=== PATIENT | male | born 1960 | race Caucasian/White ===

== ENCOUNTER → 2021-06-09 10:27 | Outpatient (CLI) | payer MEDICARE, MEDICAID, SELFPAY ==
[2021-06-09 19:08] LABS: Add Manual Diff / Slide Review NO; Basophils Absolute Auto 0 /uL (0-100); Basophils Percent Auto 0.7 % (0-2); Eosinophils Absolute Auto 100 /uL (0-450); Eosinophils Percent Auto 0.9 % (2-4); Hematocrit 40.9 % (41-53); Lymphocytes Absolute Auto 800 /uL (1100-4500); Lymphocytes Percent Auto 11.1 % (25-40); Mean Corpuscular HGB Conc 34.3 % (30-36); Mean Corpuscular Hemoglobin 33.5 PG (26-34); Mean Corpuscular Volume 97.9 fL (80-100); Monocytes Absolute Auto 900 /uL (0-900); Monocytes Percent Auto 13.1 % (3-14); Neutrophils Absolute Auto 5000 /uL (1500-7000); Neutrophils Percent Auto 74.2 % (50-75); Platelet Count 231 X10^3/uL (150-400); Red Blood Cell Count 4.18 X10^6/uL (4.5-5.9); Red Cell Distribution Width 12.9 % (11.6-14.8); White Blood Cell Count 6.8 X10^3/uL (4.5-11.0)
[2021-06-09 19:15] LABS: Alanine Aminotransferase 24 IU/L (<50); Albumin 3.5 g/dL (3.5-5.0); Albumin Globulin Ratio 1.1 (1.0-2.8); Alkaline Phosphatase 201 U/L (38-126); Aspartate Aminotransferase 40 IU/L (17-59); BUN Creatinine Ratio 7.6 (6-22); Bilirubin Total 0.6 mg/dL (0.2-1.3); Blood Urea Nitrogen 5 mg/dL (9-20); Calcium 9.2 mg/dL (8.4-10.2); Carbon Dioxide 28 mmol/L (22-32); Chloride 100 mmol/L (98-107); Cholesterol 160 mg/dL (140-199); Estimated Glomerular Filt Rate > 60.0 mL/min (>60); Globulin 3.3 g/dL (1.7-4.1); Glucose 154 mg/dL (70-100); HDL Cholesterol 54 mg/dL (40-60); HEMOLYSIS < 15 (0-50); LDL Cholesterol Calculated 86 mg/dL (<100); Potassium 4.2 mmol/L (3.4-5.1); Sodium 135 mmol/L (137-145); Total Protein 6.8 g/dL (6.3-8.2); Triglycerides 102 mg/dL (35-150); Uric Acid 9.2 mg/dL (3.5-8.5)
[2021-06-09 19:31] LABS: Vitamin D 25 Hydroxy (D3) 42.9 ng/mL (30.0-100.0)
[2021-06-09 19:46] LABS: Prostate Specific Antigen Scrn 0.399 ng/mL (0.1-4.0)
[2021-06-09 19:57] LABS: Erythrocyte Sedimentation Rate 37 MM/HR (0-15)
[2021-06-09 20:04] LABS: Vitamin B12 522 pg/mL (239-931)
== END ==
PROVIDERS: PCP Physician Assistant Medical; Visit Provider Physician Assistant
DX: M10.9 Gout, unspecified (principal); Z13.6 Encounter for screening for cardiovascular disorders; Z12.5 Encounter for screening for malignant neoplasm of prostate; E55.9 Vitamin D deficiency, unspecified; F11.90 Opioid use, unspecified, uncomplicated; G89.4 Chronic pain syndrome; L40.52 Psoriatic arthritis mutilans; R53.83 Other fatigue; M05.44 Rheumatoid myopathy with rheumatoid arthritis of hand; M1A.9XX0 Chronic gout, unspecified, without tophus (tophi)
CPT/HCPCS: 80053; 80061; 82306; 82607; 84550; 85025; 85651; G0103

== ENCOUNTER → 2021-06-10 12:39 | Outpatient (CLI) | payer MEDICARE, MEDICAID, SELFPAY ==
[2021-06-10 18:46] LABS: UR Morphine/Opiate cutoff 300 Positive (Negative); Ur Creatinine Normal (Normal); Ur Specific Gravity Normal (Normal); Urine pH Normal (Normal)
[2021-06-10 18:47] LABS: Urine Amphetamines Negative (Negative); Urine Barbiturates Negative (Negative); Urine Benzodiazepines Negative (Negative); Urine Cocaine Negative (Negative); Urine MDMA Negative (Negative); Urine Methadone Negative (Negative); Urine Methamphetamines Negative (Negative); Urine Oxycodone Negative (Negative); Urine Phencyclidine Negative (Negative); Urine Tetrahydrocannabinol Negative (Negative); Urine Tricyclic Antidepressant Negative (Negative)
== END ==
PROVIDERS: PCP Physician Assistant Medical; Referring Provider Physician Assistant; Visit Provider Physician Assistant
DX: G89.4 Chronic pain syndrome (principal); F11.90 Opioid use, unspecified, uncomplicated; L40.52 Psoriatic arthritis mutilans; R53.83 Other fatigue; M05.44 Rheumatoid myopathy with rheumatoid arthritis of hand; M1A.9XX0 Chronic gout, unspecified, without tophus (tophi)
CPT/HCPCS: 80305

== ENCOUNTER → 2022-01-26 08:32 | Outpatient (CLI) | payer MEDICARE, MEDICAID, SELFPAY ==
[2022-01-26 18:48] LABS: Add Manual Diff / Slide Review NO; Basophils Absolute Auto 100 /uL (0-100); Basophils Percent Auto 1.2 % (0-2); Eosinophils Absolute Auto 100 /uL (0-450); Eosinophils Percent Auto 1.9 % (2-4); Hematocrit 37.1 % (41-53); Lymphocytes Absolute Auto 1000 /uL (1100-4500); Lymphocytes Percent Auto 12.6 % (25-40); Mean Corpuscular HGB Conc 34.9 % (30-36); Mean Corpuscular Hemoglobin 32.5 PG (26-34); Mean Corpuscular Volume 92.9 fL (80-100); Monocytes Absolute Auto 1100 /uL (0-900); Monocytes Percent Auto 13.7 % (3-14); Neutrophils Absolute Auto 5500 /uL (1500-7000); Neutrophils Percent Auto 70.6 % (50-75); Platelet Count 282 X10^3/uL (150-400); Red Cell Distribution Width 12.3 % (11.6-14.8); White Blood Cell Count 7.8 X10^3/uL (4.5-11.0)
[2022-01-26 18:51] LABS: Alanine Aminotransferase 20 IU/L (<50); Albumin 3.6 g/dL (3.5-5.0); Alkaline Phosphatase 174 U/L (38-126); Aspartate Aminotransferase 30 IU/L (17-59); BUN Creatinine Ratio 6.1 (6-22); Bilirubin Total 0.7 mg/dL (0.2-1.3); Blood Urea Nitrogen 4 mg/dL (9-20); Carbon Dioxide 26 mmol/L (22-32); Chloride 102 mmol/L (98-107); Estimated Glomerular Filt Rate > 60 mL/min (>60); Globulin 3.5 g/dL (1.7-4.1); Glucose 120 mg/dL (80-110); HEMOLYSIS < 15 (0-50); Potassium 4.4 mmol/L (3.4-5.1); Sodium 138 mmol/L (137-145); Total Protein 7.1 g/dL (6.3-8.2); Uric Acid 8.3 mg/dL (3.5-8.5)
== END ==
PROVIDERS: PCP Physician Assistant; Visit Provider Physician Assistant
DX: M1A.09X1 Idiopathic chronic gout, multiple sites, with tophus (tophi) (principal); L40.50 Arthropathic psoriasis, unspecified
CPT/HCPCS: 80053; 84550; 85025

== ENCOUNTER → 2022-03-24 10:44 | Outpatient (CLI) | payer MEDICARE, MEDICAID, SELFPAY ==
[2022-03-24 22:41] LABS: Uric Acid 8.7 mg/dL (3.5-8.5)
== END ==
PROVIDERS: PCP Physician Assistant; Visit Provider Physician Assistant
DX: M1A.9XX1 Chronic gout, unspecified, with tophus (tophi) (principal)
CPT/HCPCS: 84550

== ENCOUNTER → 2022-04-26 13:22 | Outpatient (CLI) | payer MEDICARE, SELFPAY ==
[2022-04-26 20:39] LABS: Uric Acid 8.5 mg/dL (3.5-8.5)
== END ==
PROVIDERS: PCP Physician Assistant; Visit Provider Physician Assistant
DX: M1A.9XX1 Chronic gout, unspecified, with tophus (tophi) (principal)
CPT/HCPCS: 84550

== ENCOUNTER → 2022-06-19 13:26 | Outpatient (CLI) | payer MEDICARE, SELFPAY ==
[2022-06-19 19:46] LABS: Add Manual Diff / Slide Review NO; Basophils Absolute Auto 100 /uL (0-100); Eosinophils Absolute Auto 100 /uL (0-450); Eosinophils Percent Auto 1.3 % (2-4); Hematocrit 40.4 % (41-53); Lymphocytes Absolute Auto 1000 /uL (1100-4500); Mean Corpuscular HGB Conc 34.6 % (30-36); Mean Corpuscular Hemoglobin 33.7 PG (26-34); Mean Corpuscular Volume 97.2 fL (80-100); Monocytes Absolute Auto 800 /uL (0-900); Monocytes Percent Auto 13.9 % (3-14); Neutrophils Absolute Auto 3500 /uL (1500-7000); Neutrophils Percent Auto 64.8 % (50-75); Platelet Count 191 X10^3/uL (150-400); Red Blood Cell Count 4.15 X10^6/uL (4.5-5.9); Red Cell Distribution Width 13.1 % (11.6-14.8); White Blood Cell Count 5.4 X10^3/uL (4.5-11.0)
[2022-06-19 19:51] LABS: Alanine Aminotransferase 40 IU/L (<50); Albumin 3.7 g/dL (3.5-5.0); Albumin Globulin Ratio 1.1 (1.0-2.8); Alkaline Phosphatase 206 U/L (38-126); Aspartate Aminotransferase 62 IU/L (17-59); BUN Creatinine Ratio 7.4 (6-22); Bilirubin Total 0.6 mg/dL (0.2-1.3); Blood Urea Nitrogen 5 mg/dL (9-20); Calcium 8.9 mg/dL (8.4-10.2); Carbon Dioxide 25 mmol/L (22-32); Chloride 99 mmol/L (98-107); Estimated Glomerular Filt Rate > 60 mL/min (>60); Gamma Glutamyl Transpeptidase 561 U/L (15-73); Globulin 3.4 g/dL (1.7-4.1); Glucose 110 mg/dL (80-110); HEMOLYSIS < 15 (0-50); Potassium 4.1 mmol/L (3.4-5.1); Sodium 137 mmol/L (137-145); Total Protein 7.1 g/dL (6.3-8.2); Uric Acid 9.5 mg/dL (3.5-8.5)
[2022-06-19 19:55] LABS: Hemoglobin A1C% w Est Avg Glu 5.4 % (4.0-6.0)
[2022-06-19 21:04] LABS: Erythrocyte Sedimentation Rate 19 MM/HR (0-15)
[2022-06-22 17:08] LABS: ANA Screen, IFA Positive (.)
== END ==
PROVIDERS: PCP Physician Assistant; Visit Provider Family Medicine
DX: Z79.891 Long term (current) use of opiate analgesic (principal); M10.9 Gout, unspecified; G89.4 Chronic pain syndrome; L40.50 Arthropathic psoriasis, unspecified; M05.44 Rheumatoid myopathy with rheumatoid arthritis of hand; M25.562 Pain in left knee; D16.20 Benign neoplasm of long bones of unspecified lower limb; D64.9 Anemia, unspecified; R73.09 Other abnormal glucose
CPT/HCPCS: 80053; 82977; 83036; 84550; 85025; 85651; 86038

== ENCOUNTER → 2022-06-28 15:54 | Outpatient (CLI) | payer MEDICARE, MEDICAID, SELFPAY ==
--- NOTE | 2022-06-28 15:55 | DI.MRI.S_ITS ---
PROCEDURE: MR KNEE LT WO CON INDICATIONS: Left Knee Pain TECHNIQUE: Noncontrast sagittal PD fast spin echo and T2 fast spin echo with fat saturation, sagittal 3-D FLASH with fat saturation; coronal T1 spin echo and PD fast spin echo with fat saturation, and axial PD fast spin echo with fat saturation through the knee. COMPARISON: [facility] ([facility]), CR, XR KNEE LT 3V, 03/24/2022, 10:52. FINDINGS: Image quality: Excellent. Menisci: There is oblique tear of the posterior horn of the medial meniscus involving the inferior articular surface. The lateral meniscus demonstrates normal morphology and internal signal. The meniscal root ligaments appear intact. Cruciate ligaments: The anterior and posterior cruciate ligaments appear intact. Medial structures: There is grade 1 sprain of the medial collateral ligament. The semimembranosus tendon insertions and meniscocapsular junction appear intact. Visualized portions of the pes anserinus tendons appear normal. Small bursal fluid in the medial collateral ligament bursa consistent with bursitis. Lateral structures: The lateral collateral ligament and the biceps femoris tendon appear intact. The popliteus tendon appears normal. Iliotibial band appears normal. Anterior structures: The quadriceps and patellar tendons appear intact. Mild quadriceps and patellar tendinitis. Patellar alignment is normal. No femoral trochlear dysplasia or ventral trochlear prominence. No edema in the infrapatellar fat pad. Bones and cartilage: There is serpiginous intramedullary mass lesions with abnormal signal involving distal femur and proximal tibia. No fractures. There is a small osteochondral lesion in the peripheral aspect of the medial femoral condyle. Mild generalized cartilage thinning and fibrillation, most pronounced in the medial femorotibial compartment. Joint space: There is moderate knee joint effusion. No Birmingham's cyst. There is mild thickening of synovial plicae. IMPRESSION: 1. Oblique tear of the posterior horn of the medial meniscus. 2. A small osteochondral lesion involving the peripheral aspect of the medial femoral condyle. No unstable fragment is present. 3. Serpiginous intramedullary lesions with abnormal signal involving the distal femur and proximal tibia. The distal femoral lesion is incompletely visualized. The morphology of the lesions are most compatible with bone infarcts. If clinically indicated, contrast-enhanced MRI is recommended for further evaluation. 4. Medial collateral ligament bursal fluid is present, consistent with bursitis. 5. Mild quadriceps tendinitis and patellar tendinitis. 6. Moderate knee joint effusion. Dictated by: Honorio Felix M.D. on 06/28/2022 at 17:14 Approved by: Honoroi Felix M.D. on 06/29/2022 at 12:26
== END ==
PROVIDERS: PCP Physician Assistant; Referring Provider Family Medicine; Visit Provider Family Medicine
DX: S83.242A Other tear of medial meniscus, current injury, left knee, initial encounter (principal); D16.9 Benign neoplasm of bone and articular cartilage, unspecified; M76.52 Patellar tendinitis, left knee; M25.462 Effusion, left knee; M25.562 Pain in left knee; G89.29 Other chronic pain
CPT/HCPCS: 73721

== ENCOUNTER → 2022-11-29 11:59 | Outpatient (CLI) | payer MEDICARE, SELFPAY ==
[2022-11-29 19:44] LABS: Alanine Aminotransferase 39 IU/L (<50); Albumin 3.8 g/dL (3.5-5.0); Alkaline Phosphatase 250 U/L (38-126); Aspartate Aminotransferase 59 IU/L (17-59); BUN Creatinine Ratio 6.3 (6-22); Bilirubin Total 0.9 mg/dL (0.2-1.3); Blood Urea Nitrogen 4 mg/dL (9-20); Calcium 8.8 mg/dL (8.4-10.2); Carbon Dioxide 26 mmol/L (22-32); Chloride 98 mmol/L (98-107); Estimated Glomerular Filt Rate > 60 mL/min (>60); Globulin 3.9 g/dL (1.7-4.1); Glucose 97 mg/dL (80-110); HEMOLYSIS 37 (0-50); Potassium 4.6 mmol/L (3.4-5.1); Sodium 136 mmol/L (137-145); Total Protein 7.7 g/dL (6.3-8.2); Uric Acid 9.5 mg/dL (3.5-8.5)
[2022-11-30 16:18] LABS: Hepatitis B Surface Antigen NEGATIVE s/c (NEGATIVE)
[2022-11-30 16:41] LABS: Hep C Virus Ab w/Reflex Quant NEGATIVE s/c (NEGATIVE)
== END ==
PROVIDERS: PCP Physician Assistant; Visit Provider Physician Assistant
DX: R74.8 Abnormal levels of other serum enzymes (principal); M1A.9XX1 Chronic gout, unspecified, with tophus (tophi)
CPT/HCPCS: 80053; 84550; 86803; 87340

== ENCOUNTER 2023-07-25 11:43 | Inpatient (IN) | payer MEDICARE, MEDICAID, SELFPAY ==
[2023-07-25] VITALS (13 sets, daily range): BP systolic 97–114; BP diastolic 51–74; PULSE 85–118; RESP 12–36; TEMP 36.4–36.9; O2SAT 95–100; BMI 23.7
--- NOTE | 2023-07-25 12:14 | DI.RAD.S_ITS ---
PROCEDURE: XR HIP W PEL IF DONE LT 2V INDICATIONS: fall/pain TECHNIQUE: AP pelvis with lateral view(s) of the it hip(s). COMPARISON: None. FINDINGS: Bones: Age indeterminate periprosthetic fracture through the proximal left femoral shaft. Left total hip arthroplasty present, with intact cerclage wires. Soft tissues: The visualized bowel gas pattern is normal. No suspicious soft tissue calcifications. IMPRESSION: Age indeterminate periprosthetic fracture through the proximal left femoral shaft, seen best on lateral view. Dictated by: Dread Álvarez M.D. on 07/25/2023 at 12:52 Approved by: Dread Álvarez M.D. on 07/25/2023 at 12:53
--- NOTE | 2023-07-25 12:14 | DI.RAD.S_ITS ---
PROCEDURE: XR SHOULDER LT MIN 2V INDICATIONS: fall/pain TECHNIQUE: 3 views of the shoulder were acquired. COMPARISON: None. FINDINGS: Bones: No fractures or dislocations. No suspicious bony lesions. Visualized ribs appear intact. Glenohumeral and acromioclavicular joint space narrowing with associated osteophytosis. Soft tissues: No suspicious soft tissue calcifications. IMPRESSION: No acute bony abnormality. Dictated by: Dread Álvarez M.D. on 07/25/2023 at 12:53 Approved by: Dread Álvarez M.D. on 07/25/2023 at 12:54
--- NOTE | 2023-07-25 13:57 | ED_ITS ---
HPI - Extremity Injury (Lower) General Chief Complaint: Extremity Injury, Lower Stated Complaint: GLF left hip and shoulder Time Seen by Provider: 07/25/23 13:49 History of Present Illness HPI Narrative: Patient brought here by friend from home for complaints of left shoulder pain left hip pain. Patient had hip replacement 15 years ago in [place]. Has been doing well since then. Patient states 2 days ago he was walking on his path at home when he lost his balance and fell onto his left side. Only complains of left shoulder and left hip pain. No other injuries. No loss of consciousness. Patient is not on any blood thinners. Did not hit his head. No head neck or spine pain or injury. Patient unable to stand and bear weight on his left hip since then. His left shoulder feels much better. He is moving his left shoulder without any difficulty. Taking off his shirt without difficulty. Using his left hand to throw a shirt onto the bed Related Data Previous Rx's Medication Instructions Recorded naloxone 4 mg/actuation nasal spray 1 spray intranasal Q3M #2 ea 06/17/21 colchicine (gout) 0.6 mg tablet 0.6 mg PO DAILY PRN acute gout #30 03/24/22 tabs diclofenac sodium 1 % topical gel 4 g topical QID #100 grams 05/05/22 (Voltaren Arthritis Pain) naproxen 500 mg tablet 500 mg PO BID PRN pain #60 tabs 11/29/22 cyclobenzaprine 10 mg tablet 10 mg PO TID #90 tabs 05/01/23 allopurinol 300 mg tablet 300 mg PO BID #60 tabs 06/04/23 oxycodone-acetaminophen 10 mg-325 See Rx Instructions .Route 07/06/23 mg tablet .COMPLEX #90 tabs Allergies Allergy/AdvReac Type Severity Reaction Status Date / Time No Known Drug Allergies Allergy Verified 06/04/23 08:39 Review of Systems Review of Systems Narrative: GENERAL: negative chills, fatigue, malaise, fever, sweats. 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 Nontender scalp skull and face EYES: Pupils equal round ENT: Mucous membranes moist. NECK: Trachea midline. No midline tenderness or step-off of the cervical thoracic or lumbar spine CARDIOVASCULAR: Regular rate and rhythm RESPIRATORY: Clear to auscultation. Breath sounds equal bilaterally. No wheezes, rales, or rhonchi. GASTROINTESTINAL: Abdomen soft, non-tender EXTREMITIES: Patient in a seated position, examination left upper extremity there is bruising anteriorly. However full active range of motion without difficulty. No deformity of the left shoulder. Strong index clerk and radial pulse. Nontender elbow and wrist and hand Examination left lower extremity nontender knee and ankle. However any attempt to move actively or passively the left hip causes him pain. Unable to bear weight or get up from seated position BACK: No flank tenderness. NEURO: AOx4. SKIN: Warm and dry PSYCH: Not anxious, is cooperative Initial Vital Signs Initial Vital Signs: Vital Signs Temperature 98.5 F 07/25/23 12:07 Pulse Rate 85 07/25/23 12:07 Respiratory Rate 20 07/25/23 12:07 Blood Pressure 98/51 L 07/25/23 12:07 Pulse Oximetry 100 07/25/23 12:07 Oxygen Delivery Method Room Air 07/25/23 12:07 Course Orders Ordered: Discontinued Medications Acetaminophen (Acetaminophen 325 Mg Tablet) 650 mg PO Q6H PRN PRN Reason: Fever/Mild Pain (1-3) Allopurinol (Allopurinol 100 Mg Tablet) 300 mg PO BID DEMETRICE Last Admin: 07/26/23 20:51 Dose: 300 mg Documented By: Admin: 07/26/23 09:08 Dose: 300 mg Documented By: Admin: 07/25/23 21:08 Dose: 300 mg Documented By: BRETT Cyclobenzaprine HCl (Cyclobenzaprine 10 Mg Tablet) 5 mg PO Q8HR PRN PRN Reason: Spasms Last Admin: 07/26/23 09:15 Dose: 5 mg Documented By: Admin: 07/26/23 00:26 Dose: 5 mg Documented By: Admin: 07/25/23 18:03 Dose: 5 mg Documented By: ALIRIO Heparin Sodium (Porcine) (Heparin 5,000 Unit/Ml Vial) 5,000 unit SUBCUT BID DEMETRICE Heparin Sodium (Porcine) (Heparin 5,000 Unit/Ml Vial) 5,000 unit SUBCUT Q8HR DEMETRICE Last Admin: 07/27/23 06:09 Dose: Not Given Documented By: Admin: 07/26/23 21:35 Dose: Not Given Documented By: BRETT Hydromorphone HCl (Hydromorphone 1 Mg Inj) 1 mg IV NOW ONE Stop: 07/25/23 15:22 Last Admin: 07/25/23 15:26 Dose: 1 mg Documented By: EMERALD Hydromorphone HCl (Hydromorphone 0.5 Mg Inj) 1 mg IV Q3H PRN PRN Reason: Pain, Severe (7-10) Last Admin: 07/25/23 16:42 Dose: 1 mg Documented By: ALIRIO Hydromorphone HCl (Hydromorphone 1 Mg Inj) 1 mg IV Q3H PRN PRN Reason: Pain, Severe (7-10) Last Admin: 07/26/23 07:44 Dose: 1 mg Documented By: Admin: 07/26/23 02:15 Dose: 1 mg Documented By: Admin: 07/25/23 21:50 Dose: 1 mg Documented By: Admin: 07/25/23 19:02 Dose: 1 mg Documented By: ALIRIO Hydromorphone HCl (Hydromorphone 1 Mg Inj) 2 mg IV Q3H PRN PRN Reason: Pain, Severe (7-10) Last Admin: 07/27/23 04:30 Dose: 2 mg Documented By: Admin: 07/27/23 01:39 Dose: 2 mg Documented By: Admin: 07/26/23 22:18 Dose: 2 mg Documented By: Admin: 07/26/23 19:24 Dose: 2 mg Documented By: Admin: 07/26/23 12:20 Dose: 2 mg Documented By: ANASTACIO Sodium Chloride (Hypertonic Saline 3%) 150 mls @ 30 mls/hr IV NOW ONE Stop: 07/25/23 22:42 Last Infusion: 07/26/23 07:21 Dose: Infused Documented By: Admin: 07/25/23 18:01 Dose: 30 mls/hr Documented By: ALIRIO Sodium Chloride (Normal Saline 0.9%) 1,000 mls @ 125 mls/hr IV CONT DEMETRICE Last Admin: 07/27/23 05:11 Dose: 125 mls/hr Documented By: Infusion: 07/27/23 04:46 Dose: Infused Documented By: Admin: 07/26/23 20:46 Dose: 125 mls/hr Documented By: Infusion: 07/26/23 20:37 Dose: Infused Documented By: Admin: 07/26/23 12:37 Dose: 125 mls/hr Documented By: Infusion: 07/26/23 12:37 Dose: Infused Documented By: Admin: 07/26/23 08:32 Dose: 125 mls/hr Documented By: ANASTACIO Sodium Chloride (Normal Saline 0.9%) 500 mls @ 1,000 mls/hr IV BOLUS ONE Stop: 07/26/23 11:49 Last Infusion: 07/26/23 12:12 Dose: Infused Documented By: Admin: 07/26/23 11:28 Dose: 1,000 mls/hr Documented By: ANASTACIO Morphine Sulfate (Morphine 4 Mg/Ml Inj) 4 mg IV NOW ONE Stop: 07/25/23 13:58 Last Admin: 07/25/23 14:22 Dose: 4 mg Documented By: ABDIRAHMAN Naloxone HCl (Naloxone 0.4 Mg/Ml Vial) 0.2 mg IV Q2MIN PRN PRN Reason: Opiate Reversal Ondansetron HCl (Ondansetron 4 Mg/2 Ml Inj) 4 mg IV NOW ONE Stop: 07/25/23 13:58 Last Admin: 07/25/23 14:21 Dose: 4 mg Documented By: ABDIRAHMAN Ondansetron HCl (Ondansetron 4 Mg/2 Ml Inj) 4 mg IV Q8HR PRN PRN Reason: Nausea And Vomiting Oxycodone HCl (Oxycodone Ir 5 Mg Tablet) 10 mg PO Q3H PRN PRN Reason: Pain, Moderate (4-6) Oxycodone HCl (Oxycodone Ir 5 Mg Tablet) 5 mg PO Q3HR PRN PRN Reason: Pain, Moderate (4-6) Oxycodone HCl (Oxycodone Ir 10 Mg Tablet) 10 mg PO Q3HR PRN PRN Reason: Pain, Severe (7-10) Last Admin: 07/26/23 20:51 Dose: 10 mg Documented By: Admin: 07/26/23 16:11 Dose: 10 mg Documented By: Admin: 07/26/23 03:29 Dose: 10 mg Documented By: Admin: 07/26/23 00:26 Dose: 10 mg Documented By: Admin: 07/25/23 21:08 Dose: 10 mg Documented By: Admin: 07/25/23 18:03 Dose: 10 mg Documented By: ALIRIO Sodium Chloride (Sodium Chloride 1,000 Mg Tablet) 1,000 mg PO BID DEMETRICE Last Admin: 07/26/23 20:51 Dose: 1,000 mg Documented By: Admin: 07/26/23 09:44 Dose: 1,000 mg Documented By: ANASTACIO Vital Signs Vital signs: Vital Signs - 8 hr 07/25/23 12:07 07/25/23 15:10 Temperature 98.5 F Pulse Rate 85 Respiratory Rate 20 Blood Pressure 98/51 L 102/61 Pulse Oximetry 100 Oxygen Delivery Method Room Air MDM - Extremity Injury (Lower) Lab Data 07/26/23 04:30 07/27/23 04:30 Labs: Lab Results 07/25/23 Range/Units 14:23 WBC TNP RBC TNP Hgb TNP Hct TNP MCV TNP MCH TNP MCHC TNP RDW TNP Plt Count TNP Neut % (Auto) Cancelled Lymph % (Auto) Cancelled [place] % (Auto) Cancelled Eos % (Auto) Cancelled Baso % (Auto) Cancelled Neut # (Auto) Cancelled Lymph # (Auto) Cancelled [place] # (Auto) Cancelled Eos # (Auto) Cancelled Baso # (Auto) Cancelled Total Counted Not Reportable RBC Morphology Not Reportable Sodium 117 L* (137-145) mmol/L Potassium 4.2 (3.4-5.1) mmol/L Chloride 76 L* (98-107) mmol/L Carbon Dioxide 27 (22-32) mmol/L BUN 6 L (9-20) mg/dL Creatinine 0.70 (0.66-1.25) mg/dL Estimated GFR > 60 (>60) mL/min BUN/Creatinine Ratio 8.6 (6-22) Glucose 110 (80-110) mg/dL Calcium 8.9 (8.4-10.2) mg/dL Total Bilirubin 1.7 H (0.2-1.3) mg/dL AST 91 H (17-59) IU/L ALT 36 (<50) IU/L Alkaline Phosphatase 266 H (38-126) U/L Total Protein 7.1 (6.3-8.2) g/dL Albumin 3.6 (3.5-5.0) g/dL Globulin 3.5 (1.7-4.1) g/dL Albumin/Globulin Ratio 1.0 (1.0-2.8) Imaging Data Extremity x-ray #1: Radiologist's Impression: [place] [address] XRay Report Signed Patient: Jil Hutchinson MR#: [id number] : 1960 Acct:[id number] Age/Sex: 62 / M Date of Service: 07/25/23 Loc: ED Accession Number: [id number] Procedure: XR hip w pel if done LT 2V Ordering Provider: Tommy Townsend MD PROCEDURE: XR HIP W PEL IF DONE LT 2V INDICATIONS: fall/pain TECHNIQUE: AP pelvis with lateral view(s) of the it hip(s). COMPARISON: None. FINDINGS: Bones: Age indeterminate periprosthetic fracture through the proximal left femoral shaft. Left total hip arthroplasty present, with intact cerclage wires. Soft tissues: The visualized bowel gas pattern is normal. No suspicious soft tissue calcifications. IMPRESSION: Age indeterminate periprosthetic fracture through the proximal left femoral shaft, seen best on lateral view. Dictated by: Dread Álvarez M.D. on 07/25/2023 at 12:52 Approved by: Dread Álvarez M.D. on 07/25/2023 at 12:53 Extremity x-ray #2: Radiologist's Impression: [address] [address] XRay Report Signed Patient: Jil Hutchinson MR#: [id number] : 1960 Acct:[id number] Age/Sex: 62 / M Date of Service: 07/25/23 Loc: ED Accession Number: [id number] Procedure: XR shoulder LT min 2V Ordering Provider: Tommy Townsend MD PROCEDURE: XR SHOULDER LT MIN 2V INDICATIONS: fall/pain TECHNIQUE: 3 views of the shoulder were acquired. COMPARISON: None. FINDINGS: Bones: No fractures or dislocations. No suspicious bony lesions. Visualized ribs appear intact. Glenohumeral and acromioclavicular joint space narrowing with associated osteophytosis. Soft tissues: No suspicious soft tissue calcifications. IMPRESSION: No acute bony abnormality. Dictated by: Dread Álvarez M.D. on 07/25/2023 at 12:53 Approved by: Dread Álvarez M.D. on 07/25/2023 at 12:54 [facility] Narrative Medical decision making narrative: Patient brought here by friend from home for complaints of left shoulder pain left hip pain. Patient had hip replacement 15 years ago in [place]. Has been doing well since then. Patient states 2 days ago he was walking on his path at home when he lost his balance and fell onto his left side. Only complains of left shoulder and left hip pain. No other injuries. No loss of consciousness. Patient is not on any blood thinners. Did not hit his head. No head neck or spine pain or injury. Patient unable to stand and bear weight on his left hip since then. His left shoulder feels much better. He is moving his left shoulder without any difficulty. Taking off his shirt without difficulty. Using his left hand to throw a shirt onto the bed After history and exam x-ray left shoulder x-ray left hip CBC CMP IV access morphine Zofran likely transfer [facility] orthopedics specialties MDM CC: Left shoulder left hip pain Complicating co-morbidities: History of left hip surgery Data collected from: Patient and friend Medical records reviewed: No recent visit for this complaint Differential considered: Includes but not limited to shoulder/hip contusion strain sprain fracture dislocation Exam documented above, pertinent findings include: Tender and limited range of motion left hip Lab Test results independently reviewed as above. Pertinent findings: Imaging studies independently reviewed: X-ray left shoulder no acute finding X-ray left hip age indeterminate periprosthetic fracture through the proximal left femoral shaft Consultations: 2:30 p.m.. Spoke with Orthopedics, dr aldana, he will be able to do surgery on a patient here. Admit to hospitalist. Would like records from [facility]. Hospitalist to admit 3:20 p.m. spoke with hospitalist, dr rosas, will admit Treatments: Morphine Zofran dilaudid Re-evaluations: Reviewed imaging results with patient. Awaiting to hear back from orthopedic on-call for our service as well as [facility] Discussion: Appropriate for admission. Patient will have surgery here, I spoke with orthopedic provider. Pain is controlled. Patient understand needs admission. Diagnosis: Acute left hip fracture Discharge Plan Departure Patient Disposition: Admitted As Inpatient Clinical Impression: Closed hip fracture Qualifiers: Encounter type: initial encounter Laterality: left Qualified Code(s): S72.002A - Fracture of unspecified part of neck of left femur, initial encounter for closed fracture Admit Date/Time: 07/25/23 15:20 Admit Provider: Zeeshan Rosas
[2023-07-25] MEDS: ONDANSETRON 4 MG/2 ML INJ IV (14:21)
[2023-07-25] MEDS: MORPHINE 4 MG/ML INJ IV (14:22)
--- NOTE | 2023-07-25 14:53 | DI.CT.S_ITS ---
PROCEDURE: CT LE LT W CON INDICATIONS: Hip fracture TECHNIQUE: Noncontrast 3 mm axial sections acquired through the bony pelvis. Additional 3 mm axial sections acquired through the symptomatic hip joint, with coronal and sagittal reformats. COMPARISON: [facility], CR, XR HIP W PEL IF DONE LT 2V, 07/25/2023, 12:23. FINDINGS: Image quality: Excellent. Bones: Patient is status post left total hip arthroplasty. There is an acute appearing comminuted periprosthetic fracture involving proximal femoral shaft with minimal posterior and medial displacement of the fractured fragments. Slight lateral displacement of the greater trochanteric fragment is also noted. No other fracture or dislocation is seen. No suspicious bony lesions. No definite hardware loosening or failure. Soft tissues: There is soft tissue swelling surrounding proximal left femoral shaft fracture site. No pelvic free fluid or free air. No discrete soft tissue mass or drainable fluid collection. IMPRESSION: 1. Prior left total hip arthroplasty with significant beam hardening artifacts. No gross hardware loosening or failure. 2. Acute appearing slightly displaced and comminuted periprosthetic fracture involving proximal left femur as above. No other fracture or dislocation. No suspicious bony lesions. 3. Soft tissue swelling and edema surrounding left proximal femur fracture site. No abnormal soft tissue calcifications. No pelvic free fluid or free air. Dictated by: Sajan Gonzales M.D. on 07/25/2023 at 15:48 Approved by: Sajan Gonzales M.D. on 07/25/2023 at 15:59
[2023-07-25 15:05] LABS: Alanine Aminotransferase 36 IU/L (<50); Albumin 3.6 g/dL (3.5-5.0); Alkaline Phosphatase 266 U/L (38-126); Aspartate Aminotransferase 91 IU/L (17-59); BUN Creatinine Ratio 8.6 (6-22); Bilirubin Total 1.7 mg/dL (0.2-1.3); Blood Urea Nitrogen 6 mg/dL (9-20); Calcium 8.9 mg/dL (8.4-10.2); Carbon Dioxide 27 mmol/L (22-32); Estimated Glomerular Filt Rate > 60 mL/min (>60); Globulin 3.5 g/dL (1.7-4.1); Glucose 110 mg/dL (80-110); HEMOLYSIS 28 (0-50); Potassium 4.2 mmol/L (3.4-5.1); Total Protein 7.1 g/dL (6.3-8.2)
[2023-07-25 15:07] LABS: Chloride 76 mmol/L (98-107); Sodium 117 mmol/L (137-145)
--- NOTE | 2023-07-25 15:24 | P.PN_ITS ---
Subjective Subjective Interval history: Called regarding patient with fracture around prior FATOUMATA. Reportedly placed 15 years ago in [place]. Xrays show B1 versus B2 fracture. Stem does not appear grossly loose. Cerclage cables in place from prior surgery - exact history unknown at this time. May have a history of a prior fracture. CT pending for evaluation. Will require surgery - either consisting of fracture fixation with stem retention if stem is stable or revision to a long modular tapered fluted construct with surrounding fracture fixation if stem is loose. Operative records regarding the prior surgery would be extremely helpful as surgery could potentially involve liner exchange to upsize from a 28 mm head. Exact timing of surgery remains to be determined but anticipate that planning process will take enough time that this will take at least a few days to coordinate Exam Vital Signs (past 8 hours): - 07/25/23 12:07 07/25/23 15:10 Temperature 98.5 F Pulse Rate 85 Respiratory Rate 20 Blood Pressure 98/51 L 102/61 Pulse Oximetry 100 Oxygen Delivery Method Room Air Oxygen Delivery Method Room Air Objective Labs 07/25/23 14:23 07/25/23 14:23 Labs: Laboratory Results - last 24 hr 07/25/23 14:23 WBC TNP RBC TNP Hgb TNP Hct TNP MCV TNP MCH TNP MCHC TNP RDW TNP Plt Count TNP Neut % (Auto) Cancelled Lymph % (Auto) Cancelled [place] % (Auto) Cancelled Eos % (Auto) Cancelled Baso % (Auto) Cancelled Neut # (Auto) Cancelled Lymph # (Auto) Cancelled [place] # (Auto) Cancelled Eos # (Auto) Cancelled Baso # (Auto) Cancelled Sodium 117 L* Potassium 4.2 Chloride 76 L* Carbon Dioxide 27 BUN 6 L Creatinine 0.70 Estimated GFR > 60 BUN/Creatinine Ratio 8.6 Glucose 110 Calcium 8.9 Total Bilirubin 1.7 H AST 91 H ALT 36 Alkaline Phosphatase 266 H Total Protein 7.1 Albumin 3.6 Globulin 3.5 Albumin/Globulin Ratio 1.0 PFSH Medical History Foot pain Psoriatic arthritis Chronic gout, unspecified, 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
[2023-07-25] MEDS: HYDROMORPHONE 1 MG INJ IV ×3 (15:26→21:50)
[2023-07-25 15:53] LABS: Hematocrit 30.2 % (41-53); Hemoglobin 10.9 g/dL (13.5-17.5); Mean Corpuscular HGB Conc 36.1 % (30-36); Mean Corpuscular Hemoglobin 35.4 PG (26-34); Mean Corpuscular Volume 98.1 fL (80-100); Platelet Count 133 X10^3/uL (150-400); Red Blood Cell Count 3.07 X10^6/uL (4.5-5.9); Red Cell Distribution Width 11.8 % (11.6-14.8); White Blood Cell Count 8.4 X10^3/uL (4.5-11.0)
[2023-07-25 16:11] LABS: Neutrophils Absolute Manual 6468 /uL (3000-5900); RBC Morphology Normal Morphology; Total Cells Counted 100
[2023-07-25] MEDS: HYDROMORPHONE 0.5 MG INJ 1 MG IV (16:42)
[2023-07-25 17:01] LABS: Hematocrit 28.8 % (41-53); Hemoglobin 10.5 g/dL (13.5-17.5); Mean Corpuscular HGB Conc 36.4 % (30-36); Mean Corpuscular Hemoglobin 35.6 PG (26-34); Mean Corpuscular Volume 97.8 fL (80-100); Platelet Count 114 X10^3/uL (150-400); Red Blood Cell Count 2.94 X10^6/uL (4.5-5.9); Red Cell Distribution Width 11.7 % (11.6-14.8); White Blood Cell Count 6.5 X10^3/uL (4.5-11.0)
[2023-07-25 17:24] LABS: Blood Urea Nitrogen 7 mg/dL (9-20); Calcium 8.5 mg/dL (8.4-10.2); Carbon Dioxide 29 mmol/L (22-32); Chloride 77 mmol/L (98-107); Estimated Glomerular Filt Rate > 60 mL/min (>60); Glucose 106 mg/dL (80-110); Potassium 4.4 mmol/L (3.4-5.1)
[2023-07-25 17:25] LABS: HEMOLYSIS 63 (0-50)
[2023-07-25 17:26] LABS: Sodium 115 mmol/L (137-145)
[2023-07-25] MEDS: SODIUM CHLORIDE 3 % 150 ML 30 ML IV (18:01)
[2023-07-25] MEDS: OXYCODONE IR 10 MG TABLET PO ×2 (18:03→21:08)
[2023-07-25] MEDS: CYCLOBENZAPRINE 10 MG TABLET 5 MG PO (18:03)
--- NOTE | 2023-07-25 19:28 | PC.NURSE ---
When pt arrived on floor, pain not controlled, hospitalist ordered 1mg IV dilaudid and oxy 10mg. After administering PRN pain meds, and pain still not controlled several hours later, relayed pain control issues to surgeon and hospitalist. Hospitalist ordered flexeril and lidocaine patch. Just before shift change pain still not controlled and spoke with hospitalist again. When Sodium lab level came back, Na 115. Relayed critical lab to provider. Provider ordered 3% saline infusion. RN told provider that patient only has peripheral access and provider okayed 3% saline in peripheral IV until PICC placed. PICC order placed in system. RN frequently assessed IV and educated pt on signs and symptoms of IV infiltration and neurologic changes associated with hyponatremia. RN told patient to inform nurse of any IV issues. Currently VSS and IV intact with blood return, no infiltration, no leaking, no induration, no edema or pain at site. No neurologic changes.
--- NOTE | 2023-07-25 20:04 | PC.NURSE ---
Addendum entered by Rossana Araya R.N. 07/26/23 05:23: 0515- Dr. Riggs notified via text of low sodium. Will monitor. Addendum entered by Rossana Araya R.N. 07/26/23 04:35: 0430- Patient remains restless and impulsive. [place] 2. No sleep due to poor pain control. Patient has been able to void. Will monitor. Addendum entered by Rossana Araya R.N. 07/26/23 02:20: 0220- Patient Picc verified and meds given per order. Will monitor. Addendum entered by Rossana Araya R.N. 07/26/23 00:15: 0000- Picc RN here to place line. Patient has voided 100cc of urine but continues to struggle to initiate a stream. Will monitor. Addendum entered by Rossana Araya R.N. 07/25/23 21:39: 2140- Dr. Riggs has refused to increase pain control at this time. Will monitor. Original Note: 0- Patient has increased pain even with IV dilaudid. Patient heart rate is elevated and he calls out periodically. Message sent to Hospitalist awaiting orders. Will monitor.
--- NOTE | 2023-07-25 20:09 | P.HP_ITS ---
History of Present Illness History of Present Illness Date Patient Seen: 07/25/23 Time Patient Seen: 17:00 Chief complaint: GLF left hip and shoulder Narrative: Mr. Hutchinson is a 62M with PMH chronic tophaceous gout, psoriasis, opiate dependence who presents to the hospital with hip pain after a fall. He had hip replacement over a decade ago. He fell two days ago when he lost his balance and fell on his left hip. He was able to walk but with difficulty since then. Because of this he presented to the hospital. Of note he has documented in this chart to have psoriatic arthritis and rheumoatid arthritis, but rheumatology note documents differently that he has chronic tophaceous gout and psoriasis without arthritis, and also poor adherence and follow up. In the ED workup was done, vitals notable for afebrile, heart rate 80s, blood pressure 90s/50s, sats 100% on room air. Labs reviewed by me and notable for WBC 6.5, hgb 10.5, plts 114. Na 115, creatinine 0.70, BUN 7. Bili 1.7, ast 91, alt 36, alk phos 266. Hip xray showed age indeterminate periprosthetic fracture through proximal left femoral shaft. Shoulder xray with no acute process. Ortho consulted and recommended admit here for possible surgery. He was admitted for further treatment. 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 Surgical History Anesthesia History of surgery History of hip replacement Social History household members: none Smoking Status: Current every day smoker Meds Home Medications and Allergies Home Medications Medication Instructions Recorded Confirmed Type naloxone 4 mg/actuation nasal spray 1 spray intranasal Q3M #2 ea 06/17/21 07/25/23 Rx colchicine (gout) 0.6 mg tablet 0.6 mg PO DAILY PRN acute gout #30 03/24/22 07/25/23 Rx tabs diclofenac sodium 1 % topical gel 4 g topical QID #100 grams 05/05/22 07/25/23 Rx (Voltaren Arthritis Pain) naproxen 500 mg tablet 500 mg PO BID PRN pain #60 tabs 11/29/22 07/25/23 Rx cyclobenzaprine 10 mg tablet 10 mg PO TID #90 tabs 05/01/23 07/25/23 Rx allopurinol 300 mg tablet 300 mg PO BID #60 tabs 06/04/23 07/25/23 Rx oxycodone-acetaminophen 10 mg-325 See Rx Instructions .Route 07/06/23 07/25/23 Rx mg tablet .COMPLEX #90 tabs Allergies Allergy/AdvReac Type Severity Reaction Status Date / Time No Known Drug Allergies Allergy Verified 06/04/23 08:39 Review of Systems Review of Systems Narrative: 14 systems reviewed and negative aside from what is noted in HPI Exam Vital Signs (past 8 hours): - 07/25/23 15:10 07/25/23 16:21 07/25/23 16:46 Temperature 98.1 F Pulse Rate 104 H Respiratory Rate 18 Blood Pressure 102/61 103/62 Pulse Oximetry 99 Oxygen Delivery Method Room Air Oxygen Flow Rate 0 07/25/23 18:11 07/25/23 18:11 07/25/23 18:30 Temperature Pulse Rate 104 H 102 H Respiratory Rate 12 25 H Blood Pressure 98/63 Pulse Oximetry Oxygen Delivery Method Oxygen Flow Rate 07/25/23 18:43 07/25/23 18:55 07/25/23 18:55 Temperature Pulse Rate 98 H 96 H Respiratory Rate 16 26 H Blood Pressure 100/70 100/70 Pulse Oximetry 98 98 Oxygen Delivery Method Oxygen Flow Rate 07/25/23 19:00 07/25/23 19:00 Temperature Pulse Rate 95 H Respiratory Rate 16 Blood Pressure 97/59 L Pulse Oximetry 99 Oxygen Delivery Method Oxygen Flow Rate 0 Oxygen Delivery Method Room Air Oxygen Flow Rate 0 Narrative Exam Narrative: GEN: in distress from pain HEENT: moist mucous membranes CV: regular rate and rhythm, no murmurs PULM: clear bilaterally ABD: soft, nontender EXT: warm and well perfused with no edema, severe tophaceous gout in fingers bilaterally NEURO: awake, alert, no focal eficits Objective Labs 07/25/23 16:50 07/25/23 16:50 Labs: Laboratory Results - last 24 hr 07/25/23 07/25/23 07/25/23 14:23 15:46 16:50 WBC TNP 8.4 6.5 RBC TNP 3.07 L 2.94 L Hgb TNP 10.9 L 10.5 L Hct TNP 30.2 L 28.8 L MCV TNP 98.1 97.8 MCH TNP 35.4 H 35.6 H MCHC TNP 36.1 H 36.4 H RDW TNP 11.8 11.7 Plt Count TNP 133 L 114 L Neut % (Auto) Cancelled Lymph % (Auto) Cancelled [place] % (Auto) Cancelled Eos % (Auto) Cancelled Baso % (Auto) Cancelled Neut # (Auto) Cancelled Lymph # (Auto) Cancelled [place] # (Auto) Cancelled Eos # (Auto) Cancelled Baso # (Auto) Cancelled Total Counted Not Reportable 100 Seg Neutrophils % 72.0 H Band Neutrophils % 5.0 Lymphocytes % (Manual) 10.0 L Monocytes % (Manual) 12.0 H Metamyelocytes % 1.0 H Neutrophils # (Manual) 6468 H RBC Morphology Not Reportable Normal morphology Sodium 117 L* 115 L* Potassium 4.2 4.4 Chloride 76 L* 77 L Carbon Dioxide 27 29 BUN 6 L 7 L Creatinine 0.70 0.70 Estimated GFR > 60 > 60 BUN/Creatinine Ratio 8.6 10.0 Glucose 110 106 Calcium 8.9 8.5 Total Bilirubin 1.7 H AST 91 H ALT 36 Alkaline Phosphatase 266 H Total Protein 7.1 Albumin 3.6 Globulin 3.5 Albumin/Globulin Ratio 1.0 Assessment & Plan Assessment & Plan narrative: 1. Acute periprosthetic hip fracture -spoke with ortho, will begin planning for possible repair -for now patient can ambulate as tolerated and continue diet -continue pain control, may need to be significant due to opiate dependence 2. Severe hyponatremia -patient essentially asymptomatic -on my exam appears euovlemic -in setting of pain, may have siadh -ordered urine sodium, and serum/urine osms -for now start hypertonic saline, ordered picc, check na q4h, fluid restriction 3. Chronic tophaceous gout -continue allopurinol 4. Opiate dependence -will make treating pain more difficult -IV pain meds with dilaudid for now 5. Psoriasis vs other -per PCP note they were attempting to get records to see if any diagnosis of RA or psoriatic arthritis -is not currently on medications for autoimmune arthritis I have discussed plan and obtained history from patient. I have discussed plan of care with ED physician, bedside nurse, ortho surgeon. I have reviewed, labs, imaging, medical notes CODE: Full Proxy: family [facility] - Meds 'Current medications' to include all prescriptions, [id number] products, herbals, cannabis/cannabidiol products, and vitamin/mineral/dietary (nutritional) supplements. I have utilized all available resources to obtain, update, or review the patient?s current medications. [If Yes, STOP here]: Yes
[2023-07-25] MEDS: allopurinoL 100 MG TABLET 300 MG PO (21:08)
[2023-07-25 21:36] LABS: MRSA (Nasal) PCR Not Detected (Not Detect)
[2023-07-25 23:07] LABS: Sodium 117 mmol/L (137-145)
[2023-07-26] VITALS (33 sets, daily range): BP systolic 72–117; BP diastolic 36–95; PULSE 90–157; RESP 15–40; TEMP 36.1–36.8; O2SAT 74–99
[2023-07-26] MEDS: OXYCODONE IR 10 MG TABLET PO ×4 (00:26→20:51)
[2023-07-26] MEDS: CYCLOBENZAPRINE 10 MG TABLET 5 MG PO ×2 (00:26→09:15)
[2023-07-26 00:32] LABS: Sodium Urine Random < 5 mmol/L (30-90)
--- NOTE | 2023-07-26 01:05 | DI.RAD.S_ITS ---
PROCEDURE: XR CHEST 1V INDICATIONS: s/p Picc placement TECHNIQUE: One view of the chest was acquired. COMPARISON: [facility] ([facility]), CR, XR CHEST 2V, 02/12/2023, 14:02. FINDINGS: Surgical changes and devices: Tip of the right PICC projects over the lower SVC Lungs and pleura: Lungs are clear. No pleural effusions or pneumothorax. Mediastinum: Mediastinal contours appear normal. Heart size is normal. Bones and chest wall: Remote rib fractures present IMPRESSION: Tip of the right PICC projects over the lower SVC. Dictated by: Yuval Srinivasan M.D. on 07/26/2023 at 1:51 Approved by: Yuval Srinivasan M.D. on 07/26/2023 at 1:52
[2023-07-26] MEDS: HYDROMORPHONE 1 MG INJ IV ×2 (02:15→07:44)
[2023-07-26 04:38] LABS: Hemoglobin 8.7 g/dL (13.5-17.5); Lymphocytes Absolute Auto 800 /uL (1100-4500); Platelet Count 107 X10^3/uL (150-400); Red Blood Cell Count 2.44 X10^6/uL (4.5-5.9)
[2023-07-26 04:48] LABS: BUN Creatinine Ratio 7.9 (6-22); Blood Urea Nitrogen 6 mg/dL (9-20); Calcium 7.9 mg/dL (8.4-10.2); Carbon Dioxide 28 mmol/L (22-32); Chloride 79 mmol/L (98-107); Estimated Glomerular Filt Rate > 60 mL/min (>60); Glucose 99 mg/dL (80-110); HEMOLYSIS < 15 (0-50); Potassium 4.2 mmol/L (3.4-5.1)
[2023-07-26 04:49] LABS: Alanine Aminotransferase 30 IU/L (<50); Albumin 2.6 g/dL (3.5-5.0); Albumin Globulin Ratio 0.9 (1.0-2.8); Alkaline Phosphatase 198 U/L (38-126); Aspartate Aminotransferase 77 IU/L (17-59); Bilirubin Total 1.7 mg/dL (0.2-1.3); Bilirubin Unconjugated 0.9 mg/dL (0.0-1.1); Globulin 2.9 g/dL (1.7-4.1); HEMOLYSIS < 15 (0-50); Total Protein 5.5 g/dL (6.3-8.2)
[2023-07-26 04:56] LABS: Sodium 115 mmol/L (137-145)
[2023-07-26 05:19] LABS: Add Manual Diff / Slide Review NO; Basophils Absolute Auto 0 /uL (0-100); Basophils Percent Auto 0.7 % (0-2); Eosinophils Absolute Auto 0 /uL (0-450); Eosinophils Percent Auto 0.6 % (2-4); Mean Corpuscular HGB Conc 36.1 % (30-36); Mean Corpuscular Hemoglobin 35.6 PG (26-34); Mean Corpuscular Volume 98.6 fL (80-100); Monocytes Absolute Auto 1100 /uL (0-900); Monocytes Percent Auto 15.4 % (3-14); Neutrophils Absolute Auto 5000 /uL (1500-7000); Neutrophils Percent Auto 72.3 % (50-75); Red Cell Distribution Width 11.8 % (11.6-14.8)
--- NOTE | 2023-07-26 07:40 | P.HP_ITS ---
History of Present Illness History of Present Illness Date Patient Seen: 07/25/23 Chief complaint: GLF left hip and shoulder Narrative: Patient seen last night. I had initially received a consult for him prior to admission and reviewed his imaging which demonstrated a relatively nondisplaced fracture around a prior total hip arthroplasty. I had initially presumed this would be an operative injury however after discussing the injury with the patient he fell on Sunday and had walked with a cane for 2 days after the injury occurred. He was admitted to the hospital and admitted to the ICU because of severe hyponatremia. 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 Surgical History Anesthesia History of surgery History of hip replacement Social History household members: none Smoking Status: Current every day smoker Meds Home Medications and Allergies Home Medications Medication Instructions Recorded Confirmed Type naloxone 4 mg/actuation nasal spray 1 spray intranasal Q3M #2 ea 06/17/21 07/25/23 Rx colchicine (gout) 0.6 mg tablet 0.6 mg PO DAILY PRN acute gout #30 03/24/22 07/25/23 Rx tabs diclofenac sodium 1 % topical gel 4 g topical QID #100 grams 05/05/22 07/25/23 Rx (Voltaren Arthritis Pain) naproxen 500 mg tablet 500 mg PO BID PRN pain #60 tabs 11/29/22 07/25/23 Rx cyclobenzaprine 10 mg tablet 10 mg PO TID #90 tabs 05/01/23 07/25/23 Rx allopurinol 300 mg tablet 300 mg PO BID #60 tabs 06/04/23 07/25/23 Rx oxycodone-acetaminophen 10 mg-325 See Rx Instructions .Route 07/06/23 07/25/23 Rx mg tablet .COMPLEX #90 tabs Allergies Allergy/AdvReac Type Severity Reaction Status Date / Time No Known Drug Allergies Allergy Verified 06/04/23 08:39 Review of Systems Review of Systems ROS: Yes All systems reviewed with the patient and are negative except as otherwise documented Exam Vital Signs (past 8 hours): - 07/26/23 00:00 07/26/23 00:00 07/26/23 01:00 Temperature 97.5 F L Pulse Rate 118 H Respiratory Rate 19 Blood Pressure 115/65 103/61 Pulse Oximetry 97 Oxygen Flow Rate 0 07/26/23 01:00 07/26/23 02:00 07/26/23 03:00 Temperature Pulse Rate 103 H 127 H Respiratory Rate 20 40 H Blood Pressure 111/61 117/72 Pulse Oximetry 97 Oxygen Flow Rate 0 07/26/23 03:00 07/26/23 04:00 07/26/23 04:00 Temperature 97.0 F L Pulse Rate 111 H 103 H Respiratory Rate 20 19 Blood Pressure 94/52 L Pulse Oximetry 97 Oxygen Flow Rate 0 0 07/26/23 05:00 07/26/23 05:00 07/26/23 06:00 Temperature Pulse Rate 102 H 97 H Respiratory Rate 18 16 Blood Pressure 85/50 L Pulse Oximetry Oxygen Flow Rate 0 07/26/23 06:00 07/26/23 06:01 07/26/23 06:01 Temperature Pulse Rate 98 H Respiratory Rate 19 Blood Pressure 78/51 L 85/53 L Pulse Oximetry Oxygen Flow Rate 0 Oxygen Delivery Method Room Air Oxygen Flow Rate 0 Narrative Exam Narrative: Examination of the affected hip demonstrates a well-healed posterior surgical incision. He has significant ecchymosis laterally as well as in the groin. He is able to tolerate mild range of motion of the hip but complains of pain with more significant motion. He has intact dorsiflexion and plantar flexion of his hallux and ankle Const General: cooperative Orientation: alert and awake [facility] Head: normal to inspection Ears: hearing grossly normal bilaterally Eyes General: appearance normal, both eyes and all related structures Neck Neck: normal visual inspection Resp Effort & Inspection: normal respiratory effort and able to speak in complete sentences Cardio Pulses: other (peripheral pulses present) Skin Lesions: no lesions Rashes: no rashes Neuro General: patient alert, patient awake and moves all extremities Psych Appearance: grossly normal Objective Imaging CT femur: My impression: Radiographs as well as a CT scan reviewed. He has a prior total hip arthroplasty in place with cerclage cables around the lesser trochanter and calcar. There is a fracture in the subtrochanteric region. It does not appear to be chronic. There are clean fracture edges. He has a long uncemented stem with a stable distal position which effectively bridges the fracture. The hip is concentrically reduced and the metaphyseal region remains intact around the shoulder of the stem Labs 07/26/23 04:30 07/26/23 04:30 Labs: Laboratory Results - last 24 hr 07/25/23 07/25/23 07/25/23 14:23 15:46 16:01 WBC TNP 8.4 RBC TNP 3.07 L Hgb TNP 10.9 L Hct TNP 30.2 L MCV TNP 98.1 MCH TNP 35.4 H MCHC TNP 36.1 H RDW TNP 11.8 Plt Count TNP 133 L Neut % (Auto) Cancelled Lymph % (Auto) Cancelled [place] % (Auto) Cancelled Eos % (Auto) Cancelled Baso % (Auto) Cancelled Neut # (Auto) Cancelled Lymph # (Auto) Cancelled [place] # (Auto) Cancelled Eos # (Auto) Cancelled Baso # (Auto) Cancelled Total Counted Not Reportable 100 Seg Neutrophils % 72.0 H Band Neutrophils % 5.0 Lymphocytes % (Manual) 10.0 L Monocytes % (Manual) 12.0 H Metamyelocytes % 1.0 H Neutrophils # (Manual) 6468 H RBC Morphology Not Reportable Normal morphology Sodium 117 L* Potassium 4.2 Chloride 76 L* Carbon Dioxide 27 BUN 6 L Creatinine 0.70 Estimated GFR > 60 BUN/Creatinine Ratio 8.6 Glucose 110 Calcium 8.9 Total Bilirubin 1.7 H Conjugated Bilirubin Unconjugated Bilirubin AST 91 H ALT 36 Alkaline Phosphatase 266 H Total Protein 7.1 Albumin 3.6 Globulin 3.5 Albumin/Globulin Ratio 1.0 Ur Random Sodium Nasal Screen MRSA (PCR) Not detected 07/25/23 07/25/23 07/25/23 16:50 22:52 23:45 WBC 6.5 RBC 2.94 L Hgb 10.5 L Hct 28.8 L MCV 97.8 MCH 35.6 H MCHC 36.4 H RDW 11.7 Plt Count 114 L Neut % (Auto) Lymph % (Auto) [place] % (Auto) Eos % (Auto) Baso % (Auto) Neut # (Auto) Lymph # (Auto) [place] # (Auto) Eos # (Auto) Baso # (Auto) Total Counted Seg Neutrophils % Band Neutrophils % Lymphocytes % (Manual) Monocytes % (Manual) Metamyelocytes % Neutrophils # (Manual) RBC Morphology Sodium 115 L* 117 L* Potassium 4.4 Chloride 77 L Carbon Dioxide 29 BUN 7 L Creatinine 0.70 Estimated GFR > 60 BUN/Creatinine Ratio 10.0 Glucose 106 Calcium 8.5 Total Bilirubin Conjugated Bilirubin Unconjugated Bilirubin AST ALT Alkaline Phosphatase Total Protein Albumin Globulin Albumin/Globulin Ratio Ur Random Sodium < 5 L Nasal Screen MRSA (PCR) 07/26/23 04:30 WBC 7.0 RBC 2.44 L Hgb 8.7 L Hct 24.0 L MCV 98.6 MCH 35.6 H MCHC 36.1 H RDW 11.8 Plt Count 107 L Neut % (Auto) 72.3 Lymph % (Auto) 11.0 L [place] % (Auto) 15.4 H Eos % (Auto) 0.6 L Baso % (Auto) 0.7 Neut # (Auto) 5000 Lymph # (Auto) 800 L [place] # (Auto) 1100 H Eos # (Auto) 0 Baso # (Auto) 0 Total Counted Seg Neutrophils % Band Neutrophils % Lymphocytes % (Manual) Monocytes % (Manual) Metamyelocytes % Neutrophils # (Manual) RBC Morphology Sodium 115 L* Potassium 4.2 Chloride 79 L Carbon Dioxide 28 BUN 6 L Creatinine 0.76 Estimated GFR > 60 BUN/Creatinine Ratio 7.9 Glucose 99 Calcium 7.9 L Total Bilirubin 1.7 H Conjugated Bilirubin 0.0 Unconjugated Bilirubin 0.9 AST 77 H ALT 30 Alkaline Phosphatase 198 H Total Protein 5.5 L Albumin 2.6 L Globulin 2.9 Albumin/Globulin Ratio 0.9 L Ur Random Sodium Nasal Screen MRSA (PCR) Assessment & Plan Assessment and plan (1) Closed hip fracture: Qualifiers: Encounter type: initial encounter Laterality: left Qualified Code(s): S72.002A - Fracture of unspecified part of neck of left femur, initial encounter for closed fracture Status: Acute Plan Because of the patient's severe hyponatremia surgery is not an option for him at this time. He would not be safe for anesthesia. Even if he were safe for anesthesia I think a trial of nonoperative treatment would be appropriate. He should be made touchdown weight-bearing on his left lower extremity. He can ambulate with a walker. Given the fact that he has already ambulated on this since the injury and has multiple medical comorbidities which make him high risk for surgery, if we can successfully treat this nonoperatively that would carry a much lower risk profile. Operative intervention is currently not feasible because of his medical condition and this means we should take advantage of the time that we have all his medical condition is being improved to begin gently mobilizing him with a walker while maintaining touchdown weight-bearing status
[2023-07-26] MEDS: SODIUM CHLORIDE 0.9% 1,000 ML 125 ML IV ×3 (08:32→20:46)
--- NOTE | 2023-07-26 09:06 | PM.PN.1 ---
Subjective Subjective Interval history: Significant hip pain and chronic tolerance. No chest pain or dyspnea. Exam Vital Signs (past 8 hours): - 07/26/23 02:00 07/26/23 03:00 07/26/23 03:00 Temperature Pulse Rate 127 H 111 H Respiratory Rate 40 H 20 Blood Pressure 111/61 117/72 Pulse Oximetry 97 Oxygen Delivery Method Oxygen Flow Rate 0 0 07/26/23 04:00 07/26/23 04:00 07/26/23 05:00 Temperature 97.0 F L Pulse Rate 103 H Respiratory Rate 19 Blood Pressure 94/52 L 85/50 L Pulse Oximetry 97 Oxygen Delivery Method Oxygen Flow Rate 0 0 07/26/23 05:00 07/26/23 06:00 07/26/23 06:00 Temperature Pulse Rate 102 H 97 H Respiratory Rate 18 16 Blood Pressure 78/51 L Pulse Oximetry Oxygen Delivery Method Oxygen Flow Rate 07/26/23 06:01 07/26/23 06:01 07/26/23 07:00 Temperature Pulse Rate 98 H Respiratory Rate 19 Blood Pressure 85/53 L 78/49 L Pulse Oximetry Oxygen Delivery Method Oxygen Flow Rate 0 07/26/23 07:00 07/26/23 07:00 07/26/23 07:03 Temperature Pulse Rate 96 H Respiratory Rate 16 Blood Pressure 72/45 L Pulse Oximetry Oxygen Delivery Method Room Air Oxygen Flow Rate 07/26/23 07:03 07/26/23 07:28 07/26/23 07:28 Temperature Pulse Rate 94 H 115 H Respiratory Rate 19 29 H Blood Pressure 114/95 H Pulse Oximetry Oxygen Delivery Method Oxygen Flow Rate 07/26/23 07:34 07/26/23 07:34 07/26/23 08:00 Temperature Pulse Rate 106 H Respiratory Rate 30 H Blood Pressure 114/85 97/53 L Pulse Oximetry Oxygen Delivery Method Oxygen Flow Rate 07/26/23 08:00 Temperature Pulse Rate 98 H Respiratory Rate 17 Blood Pressure Pulse Oximetry Oxygen Delivery Method Oxygen Flow Rate Oxygen Delivery Method Room Air Oxygen Flow Rate 0 Narrative Exam Narrative: NAD Lungs clear with normal effort CV RRR without M/G/R Abdomen Soft, NT/ND No rash No leg edema Objective Labs 07/26/23 04:30 07/26/23 04:30 Labs: Laboratory Results - last 24 hr 07/25/23 07/25/23 07/25/23 14:23 15:46 16:01 WBC TNP 8.4 RBC TNP 3.07 L Hgb TNP 10.9 L Hct TNP 30.2 L MCV TNP 98.1 MCH TNP 35.4 H MCHC TNP 36.1 H RDW TNP 11.8 Plt Count TNP 133 L Neut % (Auto) Cancelled Lymph % (Auto) Cancelled [place] % (Auto) Cancelled Eos % (Auto) Cancelled Baso % (Auto) Cancelled Neut # (Auto) Cancelled Lymph # (Auto) Cancelled [place] # (Auto) Cancelled Eos # (Auto) Cancelled Baso # (Auto) Cancelled Total Counted Not Reportable 100 Seg Neutrophils % 72.0 H Band Neutrophils % 5.0 Lymphocytes % (Manual) 10.0 L Monocytes % (Manual) 12.0 H Metamyelocytes % 1.0 H Neutrophils # (Manual) 6468 H RBC Morphology Not Reportable Normal morphology Sodium 117 L* Potassium 4.2 Chloride 76 L* Carbon Dioxide 27 BUN 6 L Creatinine 0.70 Estimated GFR > 60 BUN/Creatinine Ratio 8.6 Glucose 110 Calcium 8.9 Total Bilirubin 1.7 H Conjugated Bilirubin Unconjugated Bilirubin AST 91 H ALT 36 Alkaline Phosphatase 266 H Total Protein 7.1 Albumin 3.6 Globulin 3.5 Albumin/Globulin Ratio 1.0 Ur Random Sodium Nasal Screen MRSA (PCR) Not detected 07/25/23 07/25/23 07/25/23 16:50 22:52 23:45 WBC 6.5 RBC 2.94 L Hgb 10.5 L Hct 28.8 L MCV 97.8 MCH 35.6 H MCHC 36.4 H RDW 11.7 Plt Count 114 L Neut % (Auto) Lymph % (Auto) [place] % (Auto) Eos % (Auto) Baso % (Auto) Neut # (Auto) Lymph # (Auto) [place] # (Auto) Eos # (Auto) Baso # (Auto) Total Counted Seg Neutrophils % Band Neutrophils % Lymphocytes % (Manual) Monocytes % (Manual) Metamyelocytes % Neutrophils # (Manual) RBC Morphology Sodium 115 L* 117 L* Potassium 4.4 Chloride 77 L Carbon Dioxide 29 BUN 7 L Creatinine 0.70 Estimated GFR > 60 BUN/Creatinine Ratio 10.0 Glucose 106 Calcium 8.5 Total Bilirubin Conjugated Bilirubin Unconjugated Bilirubin AST ALT Alkaline Phosphatase Total Protein Albumin Globulin Albumin/Globulin Ratio Ur Random Sodium < 5 L Nasal Screen MRSA (PCR) 07/26/23 04:30 WBC 7.0 RBC 2.44 L Hgb 8.7 L Hct 24.0 L MCV 98.6 MCH 35.6 H MCHC 36.1 H RDW 11.8 Plt Count 107 L Neut % (Auto) 72.3 Lymph % (Auto) 11.0 L [place] % (Auto) 15.4 H Eos % (Auto) 0.6 L Baso % (Auto) 0.7 Neut # (Auto) 5000 Lymph # (Auto) 800 L [place] # (Auto) 1100 H Eos # (Auto) 0 Baso # (Auto) 0 Total Counted Seg Neutrophils % Band Neutrophils % Lymphocytes % (Manual) Monocytes % (Manual) Metamyelocytes % Neutrophils # (Manual) RBC Morphology Sodium 115 L* Potassium 4.2 Chloride 79 L Carbon Dioxide 28 BUN 6 L Creatinine 0.76 Estimated GFR > 60 BUN/Creatinine Ratio 7.9 Glucose 99 Calcium 7.9 L Total Bilirubin 1.7 H Conjugated Bilirubin 0.0 Unconjugated Bilirubin 0.9 AST 77 H ALT 30 Alkaline Phosphatase 198 H Total Protein 5.5 L Albumin 2.6 L Globulin 2.9 Albumin/Globulin Ratio 0.9 L Ur Random Sodium Nasal Screen MRSA (PCR) [facility] Medical History Foot pain Psoriatic arthritis Chronic gout, unspecified, 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 Acute periprosthetic hip fracture, POA. -spoke with ortho, will begin planning for possible repair. Will discuss with today. -for now patient can ambulate as tolerated and continue diet -continue pain control, may need to be significant due to opiate dependence 2. Severe hyponatremia, POA (potomania). -patient essentially asymptomatic -on my exam appears euovlemic -no SIADH, low Urine Na. -Saline at 125, and NaCl tablets. 3. Chronic tophaceous gout, POA. -continue allopurinol 4. Opiate dependence, POA -will make treating pain more difficult -IV pain meds with dilaudid for now, increase dose. 5. Psoriasis , POA. -per PCP note they were attempting to get records to see if any diagnosis of RA or psoriatic arthritis -is not currently on medications for autoimmune arthritis I have discussed plan and obtained history from patient. I have discussed plan of care with ED physician, bedside nurse, ortho surgeon. I have reviewed, labs, imaging, medical notes CODE: Full Proxy: family [facility]
[2023-07-26] MEDS: allopurinoL 100 MG TABLET 300 MG PO ×2 (09:08→20:51)
[2023-07-26 09:13] LABS: Sodium 116 mmol/L (137-145)
[2023-07-26] MEDS: SODIUM CHLORIDE 1,000 MG TABLET 1000 MG PO ×2 (09:44→20:51)
[2023-07-26] MEDS: SODIUM CHLORIDE 0.9% 500 ML 1000 ML IV (11:28)
[2023-07-26] MEDS: HYDROMORPHONE 1 MG INJ 2 MG IV ×3 (12:20→22:18)
--- NOTE | 2023-07-26 12:29 | CM.DANOTE ---
Initial DCP Assessment Note Reviewed EMR for pt's medical status and anticipated d/c needs. Met with pt at bedside to introduce self and role. Pt found to be somnolent, but able to appropriately answer questions and express his needs/preferences for d/c once medically stable. Payor: Medicare, Medicaid [employer] Program Pt is a 62 year-old M admitted for L-should and hip pain after a fall. Pt dx with an acute periprosthetic hip fracture on CT imaging. Per Ortho, due to severe hyponatremia, surgery has not yet been deemed an option. [facility] is scheduled to consult today for potential surgery once pt's sodium levels are appropriate, however the focus at this time is to work on the sodium levels, get him moving more with PT/OT as possible. Pt shares that he lives alone, that he experiences financial insecurity due to living on $800/month. He states that he refuses to go to a SNF for rebab post d/c due to possible out of pocket costs. DCP will continue to monitor overall recommendations by therapies and work with pt to explore safe and manageable options for OP tx. Discharge Planning/Care Management CM Discharge Assessment Start: 07/26/23 12:11 Freq: Status: Active Protocol: Document 07/26/23 12:11 DPL (Rec: 07/26/23 12:29 DPL [id number]) Discharge Planning Assessment Assigned Senior Counsel ANN-MARIE Dewey Advance Directives? No History Provided By Medical Record Has Patient been admitted in last 30 No days? Prior Living Arrangements RV Household Members none Comment Pt states that family/friends are available to assist him as needed. Type of transporation used prior to Drives own vehicle admit Independent with ADL's Yes Is patient alert and oriented? Yes Caregiver for Another No Comment This CURATOR OF [employer]US[employer]IP[employer] discussed the potential needs when he does d /c, SNF being recommended. He was adamantly against going to a SNF, stating that he can't afford any co-pay's or out of pocket needs that might entail . Plan to discuss this further pending progress with PT/OT, and whether Ortho does move forward with a surgical repair for him. Barriers to Discharge Yes Comment Potential financial barrier, lack of cg in home. Discharge Plan Home Transportation Arrangement None Referrals Initiated Home Health Additional Comment Possible HH if SNF is refused. Cont. to follow pending therapies and Ortho recommendations. If patient plan is home with home health No : Has signed face to face form been completed? Medicare Choice List Provided No SNF/HH Preference Will discuss this should pt change his mind about SNF rehab facility as an option. Has Agency SNF been contacted No Whiteboard Updated in Patient Room with Yes name and ext. # of Senior Counsel Review Status In Process Please Provide Date Initial DC 07/26/20 Assessment Was Performed
[2023-07-26 13:14] LABS: Sodium 117 mmol/L (137-145)
[2023-07-26 16:23] LABS: BUN Creatinine Ratio 9.5 (6-22); Blood Urea Nitrogen 7 mg/dL (9-20); Calcium 7.9 mg/dL (8.4-10.2); Carbon Dioxide 27 mmol/L (22-32); Chloride 85 mmol/L (98-107); Estimated Glomerular Filt Rate > 60 mL/min (>60); Glucose 109 mg/dL (80-110); HEMOLYSIS < 15 (0-50); Potassium 3.9 mmol/L (3.4-5.1)
[2023-07-26 16:45] LABS: Sodium 119 mmol/L (137-145)
--- NOTE | 2023-07-26 21:29 | PC.NURSE ---
Addendum entered by Rossana Araya R.N. 07/27/23 06:40: 0600- Patient has gotten better rest tonight. Patient is non-compliant with weight bearing instruction. Patient advised of risk of further injury to the left hip. Patient has concerns about discharge he needs a pass to walk on first at the [place] and he needs a walker because all he has is a cane to get around with at home. Labs reviews and sodium reported to Dr. Riggs no orders received. Addendum entered by Rossana Araya R.N. 07/27/23 00:49: 0030- Patient continues to be impulsive. Patient has urgency and then difficulty starting a stream so voiding is an ongoing issue. Bed alarm is engaged for safety. Addendum entered by Rossana Araya R.N. 07/26/23 22:34: 2215- Patient found oob with his walker. Patient advised that his weight bearing on his fractured left hip is toe touch. Patient states he forgets the limitations. Patient helped back to bed and medicated for pain. Patient bed alarm on despite his objection. Will monitor. Original Note: 2130- Patient primary concern is pain. He is impulsive and is requesting the bed alarm be off. Patient advised that the bed alarm is engaged for his safety. Patient is agitated and verbally aggressive at times. Patient can be reasoned with and will comply with requests. Will monitor closely and medicate per orders.
[2023-07-26 22:22] LABS: BUN Creatinine Ratio 8.8 (6-22); Blood Urea Nitrogen 6 mg/dL (9-20); Calcium 7.4 mg/dL (8.4-10.2); Carbon Dioxide 27 mmol/L (22-32); Chloride 87 mmol/L (98-107); Estimated Glomerular Filt Rate > 60 mL/min (>60); Glucose 101 mg/dL (80-110); HEMOLYSIS 41 (0-50); Potassium 3.7 mmol/L (3.4-5.1)
[2023-07-26 22:24] LABS: Sodium 119 mmol/L (137-145)
[2023-07-27] MEDS: HYDROMORPHONE 1 MG INJ 2 MG IV ×2 (01:39→04:30)
[2023-07-27 01:42] VITALS: BP 91/52; PULSE 104; RESP 18; O2SAT 93
[2023-07-27 05:09] LABS: BUN Creatinine Ratio 9.1 (6-22); Blood Urea Nitrogen 6 mg/dL (9-20); Calcium 7.2 mg/dL (8.4-10.2); Carbon Dioxide 25 mmol/L (22-32); Chloride 89 mmol/L (98-107); Estimated Glomerular Filt Rate > 60 mL/min (>60); Glucose 89 mg/dL (80-110); HEMOLYSIS 21 (0-50); Potassium 3.6 mmol/L (3.4-5.1); Sodium 120 mmol/L (137-145)
[2023-07-27] MEDS: SODIUM CHLORIDE 0.9% 1,000 ML 125 ML IV (05:11)
--- NOTE | 2023-07-27 08:20 | PC.NURSE ---
0730 Pt agitated and upset wanting to leave immediately. States he has appointments and needs to be somewhere at 0900. Dr. Short informed that pt wants to leave AMA, form signed and Picc line removed.
[2023-07-27 14:25] LABS: Osmolality, Serum 242 mOsmol/kg (280-301)
[2023-07-27 14:25] LABS: Osmolality Urine 152 mOsmol/kg (.)
--- NOTE | 2023-07-27 15:03 | PM.DS.1 ---
History of Present Illness History of Present Illness Date Patient Seen: 07/27/23 Time Patient Seen: 07:50 Date of Onset of Symptoms: 07/25/23 Chief complaint: GLF left hip and shoulder Narrative: Mr. Hutchinson is a 62M with a history of chronic tophaceous gout, psoriasis, opiate dependence who presents to the hospital with hip pain after a fall. He had hip replacement over a decade ago. He fell two days ago when he lost his balance and fell on his left hip. He was able to walk but with difficulty since then. Because of this he presented to the hospital. Of note he has documented in this chart to have psoriatic arthritis and rheumoatid arthritis, but rheumatology note documents differently that he has chronic tophaceous gout and psoriasis without arthritis, and also poor adherence and follow up. In the ED workup was done, vitals notable for afebrile, heart rate 80s, blood pressure 90s/50s, sats 100% on room air. Labs reviewed by me and notable for WBC 6.5, hgb 10.5, plts 114. Na 115, creatinine 0.70, BUN 7. Bili 1.7, ast 91, alt 36, alk phos 266. Hip xray showed age indeterminate periprosthetic fracture through proximal left femoral shaft. Shoulder xray with no acute process. Ortho consulted and recommended admit here for possible surgery. He was admitted for further treatment. Discharge Providers Provider Date of admission: 07/25/23 15:20 Discharge Date: 07/27/23 Primary care physician: Lana Singh MD Consults: 07/25/23 17:37 Consult After Hours PICC Line RN Stat Comment: For Picc Placement 07/26/23 13:03 Consult to Physical Therapy Evaluate & Treat Comment: toe touch non weight bearing l leg Physician Instructions: Evaluate and Treat 07/26/23 16:49 Consult to Orthopedic Surgery Routine Comment: Consulting Provider: Vasiliy Kelly Reason for consultation: Fracture Has provider been notified: Yes 07/27/23 14:48 Consult to Physical Therapy Evaluate & Treat Comment: Physician Instructions: Evaluate and Treat Discharge provider: Sylvester Short MD Summary Hospital Course Discharge Diagnosis: 1. Against medical advice discharge. 2. Hyponatremia, present on admission and improved. 3. Acute periprosthetic hip fracture, present on admission and active. 4. Chronic tophaceous gout, present on admission and active. 5. Chronic opiate dependence, present on admission and active. 6. Psoriasis, present on admission and stable. Hospital Course: The patient was admitted with severe hyponatremia and a periprosthetic hip fracture. The patient was treated with saline and salt tablets for probable part of ju. The patient was improving. The patient had a diagnosis of a periprosthetic hip fracture. He was seen by Orthopedics. On July 26, Orthopedics recommended a nonoperative plan with weight-bearing as tolerated. The patient's hyponatremia was part of also not opting for an operative approach. Recommendations were made for touchdown weight-bearing on his left lower extremity and walking with a walker. The patient abruptly announced he was leaving against medical advice on the morning of the . He seemed alert and oriented x3, and had a normal general train of thought. The patient had dressed himself, and his PICC line was removed. The patient left the hospital against medical advice. Exam Vital Signs (past 8 hours): Oxygen Delivery Method Room Air Oxygen Flow Rate 0 Narrative Exam Narrative: NAD, fluent speech. Lungs clear with normal effort. CV RRR without M/G/R. Abdomen Soft, NT/ND. No rash. No leg edema. Objective Imaging Chest x-ray: Radiologist's impression: IMPRESSION: Tip of the right PICC projects over the lower SVC. Leg CT: Radiologist's impression: 1. Prior left total hip arthroplasty with significant beam hardening artifacts. No gross hardware loosening or failure. 2. Acute appearing slightly displaced and comminuted periprosthetic fracture involving proximal left femur as above. No other fracture or dislocation. No suspicious bony lesions. 3. Soft tissue swelling and edema surrounding left proximal femur fracture site. No abnormal soft tissue calcifications. No pelvic free fluid or free air. Labs 07/26/23 04:30 07/27/23 04:30 Labs: Laboratory Results - last 24 hr 07/25/23 07/26/23 07/26/23 23:45 05:00 16:00 Sodium 119 L* Potassium 3.9 Chloride 85 L Carbon Dioxide 27 BUN 7 L Creatinine 0.74 Estimated GFR > 60 BUN/Creatinine Ratio 9.5 Glucose 109 Serum Osmolality 242 L Calcium 7.9 L Urine Osmolality 152 07/26/23 07/27/23 22:00 04:30 Sodium 119 L* 120 L Potassium 3.7 3.6 Chloride 87 L 89 L Carbon Dioxide 27 25 BUN 6 L 6 L Creatinine 0.68 0.66 Estimated GFR > 60 > 60 BUN/Creatinine Ratio 8.8 9.1 Glucose 101 89 Serum Osmolality Calcium 7.4 L 7.2 L Urine Osmolality [facility] Medical History Foot pain Psoriatic arthritis Chronic gout, unspecified, 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 Against medical advice discharge. 2. Hyponatremia, present on admission and improved. 3. Acute periprosthetic hip fracture, present on admission and active. 4. Chronic tophaceous gout, present on admission and active. 5. Chronic opiate dependence, present on admission and active. 6. Psoriasis, present on admission and stable. Plan of Treatment: AMA discharge. Discharge Plan Discharge Plan Patient Disposition: Left Against Medical Advice Discharge orders & Medications Discharge Orders: Discharge (Order); Ordered 07/27/23 Ordered By: Sylvester Short Prescriptions: Continued cyclobenzaprine 10 mg tablet 10 mg PO TID Qty: 90 0RF oxycodone-acetaminophen 10-325 mg tablet See Rx Instructions .ROUTE .COMPLEX Qty: 90 0RF Rx Instructions: Take one tablet PO TID PRN; naloxone 4 mg/actuation spray,non-aerosol 1 spray intranasal Q3M Qty: 2 1RF Rx Instructions: spray 1 dose into ONE nostril; alternate nostrils w each dose until help arrives diclofenac sodium [Voltaren Arthritis Pain] 1 % gel 4 g topical QID Qty: 100 2RF Rx Instructions: apply 4 g up to four times daily to left knee colchicine (gout) 0.6 mg tablet 0.6 mg PO DAILY PRN (Reason: acute gout) Qty: 30 1RF Rx Instructions: Only for acute treatment, not prophylaxis. Uses lowest effective dose short term naproxen 500 mg tablet 500 mg PO BID PRN (Reason: pain) Qty: 60 1RF Rx Instructions: Take with food allopurinol 300 mg tablet 300 mg PO BID Qty: 60 11RF Follow up/Referrals: Lana Singh MD [Primary Care Provider] - Discharge Health Status Multidrug resistant organism: No MDRO Diet/Activity/Treatments Diet: Diet as Tolerated Skin/Wound/Dressing Care Report to your healthcare provider any signs of infection, such as:: chills, fever and increased pain Visit Report/Discharge Packet Stand Alone Forms: Patient Portal/API Discharge Data Primary Care Provider: Lana Singh Quality MIPS - DC The patient has a history of heart transplant or Left Ventricular Assist Device (LVAD). If yes, STOP here.: No The patient has current or prior documentation of left ventricular ejection fraction (LVEF) less than or equal to 40%, or moderate or severely depressed left ventricular systolic function.: No
== END 2023-07-27 08:25 | disposition left against medical advice (07) | DRG 536 ==
LOC: ED 14:58 → AC 15:21 → ICU 15:38
PROVIDERS: Hospitalist; Admitting Provider Internal Medicine; Emergency Provider Emergency Medicine; PCP Family Medicine; Referring Provider Emergency Medicine; Visit Provider Internal Medicine
DX: S72.002A Fracture of unspecified part of neck of left femur, initial encounter for closed fracture (principal); M97.02XA Periprosthetic fracture around internal prosthetic left hip joint, initial encounter; E87.1 Hypo-osmolality and hyponatremia; F11.20 Opioid dependence, uncomplicated; W18.30XA Fall on same level, unspecified, initial encounter; M1A.9XX1 Chronic gout, unspecified, with tophus (tophi); L40.9 Psoriasis, unspecified; Z53.29 Procedure and treatment not carried out because of patient's decision for other reasons
CPT/HCPCS: 36415; 36569; 36592; 71045; 73030; 73502; 73700; 80048; 80053; 80076; 83930; 83935; 84295; 84300; 85025; 85027; 87797; 96374; 96375; 99284; 99285; J1170; J2270; J2405

== ENCOUNTER 2023-08-02 14:24 | Inpatient (IN) | payer MEDICARE, MEDICAID, SELFPAY ==
[2023-07-25 16:17] VITALS: BMI 23.7
[2023-08-02] VITALS (11 sets, daily range): BP systolic 93–102; BP diastolic 56–63; PULSE 80–148; RESP 16–29; TEMP 35.8–37.4; O2SAT 99–100; BMI 21.8
--- NOTE | 2023-08-02 15:22 | ED.FALL ---
HPI - Fall General Chief Complaint: Fall Stated Complaint: here last week broken hip left AMA/fell 3x Time Seen by Provider: 08/02/23 15:18 Source: patient Mode of arrival: Ambulatory History of Present Illness HPI Narrative: Patient 62-year-old male with known left periprosthetic fracture presents today with falls and increasing pain. He was admitted to the hospital with severe hyponatremia anemia and a periprosthetic left hip fracture. On July 26 orthopedics recommended non operative plan with weight-bearing secondary to severe hyponatremia. Patient abruptly left Against Medical Advice on the . He reports that once he got home he fell eval and next day. He has obvious chest contusion. He denies hitting his head no neck pain no abdominal pain. He continues to have left hip pain. He is using a crutch. Related Data Previous Rx's Medication Instructions Recorded naloxone 4 mg/actuation nasal spray 1 spray intranasal Q3M #2 ea 06/17/21 colchicine (gout) 0.6 mg tablet 0.6 mg PO DAILY PRN acute gout #30 03/24/22 tabs diclofenac sodium 1 % topical gel 4 g topical QID #100 grams 05/05/22 (Voltaren Arthritis Pain) naproxen 500 mg tablet 500 mg PO BID PRN pain #60 tabs 11/29/22 cyclobenzaprine 10 mg tablet 10 mg PO TID #90 tabs 05/01/23 allopurinol 300 mg tablet 300 mg PO BID #60 tabs 06/04/23 oxycodone-acetaminophen 10 mg-325 See Rx Instructions .Route 07/06/23 mg tablet .COMPLEX #90 tabs Allergies Allergy/AdvReac Type Severity Reaction Status Date / Time No Known Drug Allergies Allergy Verified 08/02/23 14:42 Review of Systems Review of Systems ROS Unobtainable: All systems reviewed & are unremarkable except as noted in HPI and below Patient History Medical History Foot pain Psoriatic arthritis Chronic gout, unspecified, 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 Surgical History Anesthesia History of surgery History of hip replacement Social History household members: none Smoking Status: Current every day smoker Smoking Status: Current every day smoker tobacco type: cigarettes alcohol intake frequency: a few times a week Substance Use Type: marijuana Exam Initial Vital Signs Initial Vital Signs: Vital Signs Temperature 96.5 F L 08/02/23 14:35 Pulse Rate 83 08/02/23 14:35 Respiratory Rate 20 08/02/23 14:35 Blood Pressure 93/56 L 08/02/23 14:35 Pulse Oximetry 100 08/02/23 14:35 Oxygen Delivery Method Room Air 08/02/23 14:35 GENERAL: Alert pleasant 62-year-old male and in no acute distress. HEENT: Head atraumatic,EOMI, pupils reactive, face symmetric, moist mucous membranes CARDIOVASCULAR: Regular rate and rhythm without murmurs, rubs or gallops. RESPIRATORY: Breath sounds equal bilaterally, no wheezes rales or rhonchi. No paradoxical movement nontender chest large anterior hematoma ABDOMEN: Soft, nontender. Normoactive bowel sounds all 4 quadrants. No guarding or rebound. EXTREMITIES: Normal range of motion, no clubbing or edema. Neurovascularly intact. Pain left hip NEUROLOGICAL: Alert and oriented x4 SKIN: Chest contusion no other sign of injury no laceration Course Orders Ordered: ED Orders 08/02/23 15:10 CBC Auto Diff [Complete Blood Count AUTO DIFF] Stat CMP [Comprehensive Metabolic Panel] Stat 08/02/23 15:24 XR hip w pel if done LT 2V Stat 08/02/23 15:54 CT cervical spine wo con Stat CT chest w con Stat CT head/brain wo con Stat 08/02/23 18:17 Consult to General Surgery Stat Consult to Orthopedic Surgery Stat Acetaminophen (Acetaminophen 325 Mg Tablet) 650 mg PO Q6H PRN PRN Reason: Fever/Mild Pain (1-3) Allopurinol (Allopurinol 100 Mg Tablet) 300 mg PO BID DEMETRICE Cyclobenzaprine HCl (Cyclobenzaprine 10 Mg Tablet) 10 mg PO TID PRN PRN Reason: spasms Diclofenac Sodium (Diclofenac 1% Gel 100 Gm) 1 applic TOP QID DEMETRICE Hydromorphone HCl (Hydromorphone 0.5 Mg Inj) 1 mg IV Q4H PRN PRN Reason: Pain, Moderate (4-6) Sodium Chloride (Normal Saline 0.9%) 1,000 mls @ 125 mls/hr IV CONT DEMETRICE Stop: 10/27/23 06:29 Melatonin (Melatonin 3 Mg Tablet) 6 mg PO BEDTIME PRN PRN Reason: Insomnia Naloxone HCl (Naloxone 0.4 Mg/Ml Vial) 0.2 mg IV Q2MIN PRN PRN Reason: Opiate Reversal Oxycodone HCl (Oxycodone Ir 10 Mg Tablet) 10 mg PO Q3HR PRN PRN Reason: Pain, Severe (7-10) Polyethylene Glycol (Polyethylene Glycol 3350 17 Gm Powd.Pack) 17 gm PO DAILY PRN PRN Reason: Constipation Sennosides (Sennosides 8.6 Mg Tablet) 8.6 mg PO BID PRN PRN Reason: Constipation Discontinued Medications Hydromorphone HCl (Hydromorphone 0.5 Mg Inj) 0.5 mg IV NOW ONE Stop: 08/02/23 18:03 Last Admin: 08/02/23 18:10 Dose: 0.5 mg Documented By: EMERALD Vital Signs Vital signs: Vital Signs - 8 hr 08/02/23 14:35 Temperature 96.5 F L Pulse Rate 83 Respiratory Rate 20 Blood Pressure 93/56 L Pulse Oximetry 100 Oxygen Delivery Method Room Air MDM - Fall Lab Data 08/02/23 15:10 08/02/23 15:10 Labs: Lab Results 08/02/23 Range/Units 15:10 WBC 7.8 (4.5-11.0) X10^3/uL RBC 2.67 L (4.5-5.9) X10^6/uL Hgb 9.5 L (13.5-17.5) g/dL Hct 27.2 L (41-53) % MCV 101.6 H D (80-100) fL MCH 35.4 H (26-34) PG MCHC 34.9 (30-36) % RDW 12.8 (11.6-14.8) % Plt Count 195 (150-400) X10^3/uL Neut % (Auto) 69.5 (50-75) % Lymph % (Auto) 13.0 L (25-40) % [place] % (Auto) 15.1 H (3-14) % Eos % (Auto) 1.5 L (2-4) % Baso % (Auto) 0.9 (0-2) % Neut # (Auto) 5400 (1159-7766) /uL Lymph # (Auto) 1000 L (2242-4194) /uL [place] # (Auto) 1200 H (0-900) /uL Eos # (Auto) 100 (0-450) /uL Baso # (Auto) 100 (0-100) /uL Sodium 122 L (137-145) mmol/L Potassium 4.6 (3.4-5.1) mmol/L Chloride 91 L (98-107) mmol/L Carbon Dioxide 23 (22-32) mmol/L BUN 6 L (9-20) mg/dL Creatinine 0.56 L (0.66-1.25) mg/dL Estimated GFR > 60 (>60) mL/min BUN/Creatinine Ratio 10.7 (6-22) Glucose 93 (80-110) mg/dL Calcium 8.3 L (8.4-10.2) mg/dL Total Bilirubin 1.0 (0.2-1.3) mg/dL AST 87 H (17-59) IU/L ALT 32 (<50) IU/L Alkaline Phosphatase 198 H (38-126) U/L Total Protein 5.9 L (6.3-8.2) g/dL Albumin 2.9 L (3.5-5.0) g/dL Globulin 3.0 (1.7-4.1) g/dL Albumin/Globulin Ratio 1.0 (1.0-2.8) MDM Narrative Medical decision making narrative: Patient 62-year-old male with known left periprosthetic fracture previously had anemia with severe hyponatremia presents today with left hip pain. Blood work has been reviewed hyponatremia is improved today is 122 previously 120 anemia also improved. hemoglobin 8.7 today is 9.5 Imaging shows persistent periprosthetic fracture, CT chest does show left-sided anterior rib fractures [address] and cervical spine ct negative. Dr. Strauss looked at xray, if admitted would consider fixing. Dr. Ritchie hospitalist update on symproms and lab results agrees with admission for hyponatremia Dr. Knutson updated on rib fractures, consulted for trauma Discharge Plan Departure Patient Disposition: Admitted As Inpatient Clinical Impression: Acute hyponatremia, Closed rib fracture, Periprosthetic fracture around internal prosthetic left hip joint Admit Date/Time: 08/02/23 18:18 Admit Provider: Amari Ritchie
--- NOTE | 2023-08-02 15:24 | DI.RAD.S_ITS ---
PROCEDURE: XR HIP W PEL IF DONE LT 2V INDICATIONS: Periprosthetic fracture TECHNIQUE: AP pelvis and lateral view of the left hip acquired. COMPARISON: [facility], [facility], XR HIP W PEL IF DONE LT 2V, 07/25/2023, 12:23. FINDINGS: Bones: Patient is status post left hip arthroplasty, with hardware components in expected positions. The hip joint appears congruent. Periprosthetic fracture involving the proximal left femur is stable. Soft tissues: Overlying postoperative changes are noted. No suspicious soft tissue densities. IMPRESSION: Stable proximal left femur periprosthetic fracture. Dictated by: Arina Cameron MD, PhD on 08/02/2023 at 15:55 Approved by: Arina Cameron MD, PhD on 08/02/2023 at 15:56
[2023-08-02 15:30] LABS: Add Manual Diff / Slide Review NO; Basophils Absolute Auto 100 /uL (0-100); Basophils Percent Auto 0.9 % (0-2); Eosinophils Absolute Auto 100 /uL (0-450); Eosinophils Percent Auto 1.5 % (2-4); Hematocrit 27.2 % (41-53); Hemoglobin 9.5 g/dL (13.5-17.5); Lymphocytes Absolute Auto 1000 /uL (1100-4500); Mean Corpuscular HGB Conc 34.9 % (30-36); Mean Corpuscular Hemoglobin 35.4 PG (26-34); Mean Corpuscular Volume 101.6 fL (80-100); Monocytes Absolute Auto 1200 /uL (0-900); Monocytes Percent Auto 15.1 % (3-14); Neutrophils Absolute Auto 5400 /uL (1500-7000); Neutrophils Percent Auto 69.5 % (50-75); Platelet Count 195 X10^3/uL (150-400); Red Blood Cell Count 2.67 X10^6/uL (4.5-5.9); Red Cell Distribution Width 12.8 % (11.6-14.8); White Blood Cell Count 7.8 X10^3/uL (4.5-11.0)
[2023-08-02 15:37] LABS: Alanine Aminotransferase 32 IU/L (<50); Albumin 2.9 g/dL (3.5-5.0); Alkaline Phosphatase 198 U/L (38-126); Aspartate Aminotransferase 87 IU/L (17-59); BUN Creatinine Ratio 10.7 (6-22); Blood Urea Nitrogen 6 mg/dL (9-20); Calcium 8.3 mg/dL (8.4-10.2); Carbon Dioxide 23 mmol/L (22-32); Chloride 91 mmol/L (98-107); Estimated Glomerular Filt Rate > 60 mL/min (>60); Glucose 93 mg/dL (80-110); HEMOLYSIS 28 (0-50); Potassium 4.6 mmol/L (3.4-5.1); Sodium 122 mmol/L (137-145); Total Protein 5.9 g/dL (6.3-8.2)
--- NOTE | 2023-08-02 15:54 | DI.CT.S_ITS ---
PROCEDURE: CT CHEST W CON INDICATIONS: fall with hematoma TECHNIQUE: After the administration of intravenous contrast, 5 mm thick sections acquired from the pulmonary apices to the posterior costophrenic angles. 1 mm axial lung, 5 mm thick coronal and sagittal reformats and 7 mm axial MIP were acquired. For radiation dose reduction, the following was used: automated exposure control, adjustment of mA and/or kV according to patient size. COMPARISON: [facility], CR, XR CHEST 1V, 07/26/2023, 1:27. [facility], CT, CT CERVICAL SPINE WO CON, 08/02/2023, 15:59. [facility], CT, CT HEAD/BRAIN WO CON, 08/02/2023, 15:59. FINDINGS: Image quality: Excellent. Lungs and pleura: No acute air space opacities. No pleural effusions or pneumothorax. Central and peripheral airways are patent and normal in caliber. Mediastinum: Heart size is normal. No pericardial effusion. Moderate coronary artery calcification is seen. No mediastinal or hilar adenopathy by size criteria. Calcified mediastinal lymph nodes are seen. Thoracic aorta and central pulmonary arteries are normal in size. Esophagus is normal in caliber. No hiatal hernia. Bones and chest wall: Acute appearing left-sided rib fractures are seen involving the 3rd through 7th ribs anterolaterally. Several remote, healed left-sided rib fractures are also seen elsewhere. At least 1 remote right-sided rib fracture can be seen. There is a comminuted left lateral clavicle fracture also seen, as on series 5, image 28. Accentuated thoracic kyphosis is seen. Age-appropriate bony degenerative changes are seen. Mild levoconvex scoliotic curvature is noted. No suspicious bony lesions. No vertebral body compression fractures. No axillary or supraclavicular adenopathy by size criteria. Thyroid gland demonstrates no significant abnormality. Abdomen: Calcified granulomas can be seen within the spleen. The visualized portions of the upper abdominal structures are otherwise unremarkable for imaging technique. IMPRESSION: Acute appearing left-sided rib fractures are seen, without an associated pneumothorax. Remote bilateral rib fractures are also seen. No pneumothorax is seen. Comminuted left lateral clavicle fracture. Additional findings: Moderate coronary artery calcification Prior granulomatous exposure. Dictated by: Naveen Vail M.D. on 08/02/2023 at 15:23 Approved by: Naveen Vail M.D. on 08/02/2023 at 15:36
--- NOTE | 2023-08-02 15:54 | DI.CT.S_ITS ---
PROCEDURE: CT CERVICAL SPINE WO CON INDICATIONS: fall TECHNIQUE: Noncontrast 3 mm thick sections acquired from the skull base to the T4 level. Sagittal and coronal reformats were then constructed. For radiation dose reduction, the following was used: automated exposure control, adjustment of mA and/or kV according to patient size. COMPARISON: [facility], CT, CT CHEST W CON, 08/02/2023, 15:59. [facility], CT, CT HEAD/BRAIN WO CON, 08/02/2023, 15:59. FINDINGS: Image quality: Excellent. Bones: No fractures or dislocations. Visualized superior ribs are intact. Accentuated thoracic lordosis can be seen. There is minimal anterolisthesis at C2-C3, with minimal retrolisthesis at C3-C4, C4-C5, C5-C6, and C6-C7. Focal degenerative change is seen involving the C1-C2 interface anteriorly. There is moderate disc space narrowing at C2-C3, with moderate disc space narrowing at C3-C4 and C4-C5. Mild disc space narrowing can be seen at C5-C6 and C6-C7. Soft tissues: Prevertebral soft tissues are normal in thickness. No paravertebral hematomas. No apical pneumothoraces. Atherosclerotic calcification is noted. IMPRESSION: Negative for fracture. Multiple levels of cervical spine degenerative change can be seen, which are overall worst at the C4-C5 level. Dictated by: Naveen Vail M.D. on 08/02/2023 at 15:20 Approved by: Naveen Vail M.D. on 08/02/2023 at 15:22
--- NOTE | 2023-08-02 15:54 | DI.CT.S_ITS ---
PROCEDURE: CT HEAD/BRAIN WO CON INDICATIONS: fall TECHNIQUE: Noncontrast 4.5 mm thick angled axial sections acquired from the foramen magnum to the vertex, with coronal and sagittal reformats. For radiation dose reduction, the following was used: automated exposure control, adjustment of mA and/or kV according to patient size. COMPARISON: [facility], CT, CT CHEST W CON, 08/02/2023, 15:59. [facility], CT, CT CERVICAL SPINE WO CON, 08/02/2023, 15:59. FINDINGS: Image quality: Excellent. CSF spaces: Basal cisterns are patent. No extra-axial fluid collections. The ventricles are symmetric in size and shape. Brain: No intracranial bleeds or masses. There is cerebral volume loss for age, with resultant ventricular and sulcal prominence. There are periventricular and deep white matter chronic small vessel ischemic changes. There is intracranial internal carotid artery atherosclerosis. Skull and face: Calvarium and visualized facial bones appear intact, without suspicious lesions. Sinuses: Visualized sinuses and mastoids are clear. IMPRESSION: No acute intracranial hemorrhage is seen. No acute intracranial process is seen. Dictated by: Naveen Vail M.D. on 08/02/2023 at 15:19 Approved by: Naveen Vail M.D. on 08/02/2023 at 15:20
[2023-08-02] MEDS: HYDROMORPHONE 0.5 MG INJ IV (18:10)
--- NOTE | 2023-08-02 18:31 | P.HP_ITS ---
History of Present Illness History of Present Illness Date Patient Seen: 08/02/23 Time Patient Seen: 19:15 Chief complaint: here last week broken hip left AMA/fell 3x Narrative: Mr. Hutchinson is a 62yo M with PMH of chronic tophaceous gout, psoriasis, and opiate dependence who presents to the hospital for the 2nd time with hip pain after a fall. He had hip replacement over a decade ago. He fell 10 days ago when he lost his balance and fell on his left hip. He was able to walk but with difficulty so came to the ED and found to have L periprosthetic hip fracture. Also had sodium of 115 so admitted for hyptertonic saline and possible surgery. Na improved to 119. Surgery was delayed to give time for sodium to improve, and patient became upset from this so left AMA. He used a crutch at home, but continued having pain and has had several falls. He represented to the ED today due to continued L hip pain and falls. Na found to now be 122. He is asymptomatic. He says he doesn't drink much water and mostly beer, up to 5-6 almost daily. He also smokes marijuana but no other drug use. He denies CP, headache, seizure, vertigo, SOB, abd pain or diarrhea. 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 Surgical History Anesthesia History of surgery History of hip replacement Social History household members: none Smoking Status: Current every day smoker Meds Home Medications and Allergies Home Medications Medication Instructions Recorded Confirmed Type naloxone 4 mg/actuation nasal spray 1 spray intranasal Q3M #2 ea 06/17/21 07/25/23 Rx colchicine (gout) 0.6 mg tablet 0.6 mg PO DAILY PRN acute gout #30 03/24/22 07/25/23 Rx tabs diclofenac sodium 1 % topical gel 4 g topical QID #100 grams 05/05/22 07/25/23 Rx (Voltaren Arthritis Pain) naproxen 500 mg tablet 500 mg PO BID PRN pain #60 tabs 11/29/22 07/25/23 Rx cyclobenzaprine 10 mg tablet 10 mg PO TID #90 tabs 05/01/23 07/25/23 Rx allopurinol 300 mg tablet 300 mg PO BID #60 tabs 06/04/23 07/25/23 Rx oxycodone-acetaminophen 10 mg-325 See Rx Instructions .Route 07/06/23 07/25/23 Rx mg tablet .COMPLEX #90 tabs Allergies Allergy/AdvReac Type Severity Reaction Status Date / Time No Known Drug Allergies Allergy Verified 08/02/23 14:42 Review of Systems Review of Systems Narrative: All other systems reviewed with the patient and are negative unless otherwise stated. Exam Vital Signs (past 8 hours): - 08/02/23 14:35 Temperature 96.5 F L Pulse Rate 83 Respiratory Rate 20 Blood Pressure 93/56 L Pulse Oximetry 100 Oxygen Delivery Method Room Air Oxygen Delivery Method Room Air Narrative Exam Narrative: GEN: no acute distress, disheveled, appears dry HEENT: dry mucous membranes, PERRL NECK: trachea midline, no JVD CV: regular rate and rhythm, no murmurs PULM: clear bilaterally ABD: soft, nontender, nondistended, no organomegaly EXT: left hip tender to palpation NEURO: awake, alert, oriented, no focal deficits Objective Labs 08/02/23 15:10 08/02/23 15:10 Labs: Laboratory Results - last 24 hr 08/02/23 15:10 WBC 7.8 RBC 2.67 L Hgb 9.5 L Hct 27.2 L MCV 101.6 H D MCH 35.4 H MCHC 34.9 RDW 12.8 Plt Count 195 Neut % (Auto) 69.5 Lymph % (Auto) 13.[address] [place] % (Auto) 15.1 H Eos % (Auto) 1.5 L Baso % (Auto) 0.9 Neut # (Auto) 5400 Lymph # (Auto) [address] [place] # (Auto) 1200 H Eos # (Auto) 100 Baso # (Auto) 100 Sodium 122 L Potassium 4.6 Chloride 91 L Carbon Dioxide 23 BUN 6 L Creatinine 0.56 L Estimated GFR > 60 BUN/Creatinine Ratio 10.7 Glucose 93 Calcium 8.3 L Total Bilirubin 1.0 AST 87 H ALT 32 Alkaline Phosphatase 198 H Total Protein 5.9 L Albumin 2.9 L Globulin 3.0 Albumin/Globulin Ratio 1.0 Assessment & Plan Assessment & Plan narrative: # severe hyponatremia, POA -patient essentially asymptomatic -prior Bernadine <5 suggesting hypovolemic, but beer potomania likely as patient mostly just drinks beer -NS at 125cc/hr -q4h sodium checks -goal sodium 130 by 1500 on 08/03 # subacute periprosthetic hip fracture, POA -ortho consulted for possible surgery -for now patient can ambulate as tolerated -continue pain control, increased oxy and dilaudid doses due to tolerance # chronic tophaceous gout, POA -continue allopurinol # alcohol dependence -drinks 5-6 beers almost daily -CIWA -MV, thiamine and folate po # opiate dependence, POA -will make treating pain more difficult -IV pain meds with oxy and dilaudid for now, increased dose. # psoriasis , POA -per PCP note they were attempting to get records to see if any diagnosis of RA or psoriatic arthritis -is not currently on medications for autoimmune arthritis Code status is full code. DVT prophylaxis with SCDs. Proxy is daughter Mindi Hutchinson. I have reviewed home meds and used all available resources to reconcile the home meds. Case discussed with ED physician/APC and patient will be admitted to the hospitalist service for further workup and management. This patient will be admitted as ICU and will require greater than 2 midnights of hospital time to treat severe hyponatremia.
[2023-08-02 19:53] LABS: Magnesium 1.6 mg/dL (1.6-2.3)
[2023-08-02 20:25] LABS: TSH w/ Reflex to FT4 1.98 uIU/mL (0.47-4.68)
[2023-08-02 20:56] LABS: Sodium 125 mmol/L (137-145)
[2023-08-02] MEDS: SODIUM CHLORIDE 0.9% 1,000 ML 125 ML IV (21:15)
[2023-08-02] MEDS: OXYCODONE IR 10 MG TABLET PO (21:21)
[2023-08-02] MEDS: allopurinoL 100 MG TABLET 300 MG PO (21:22)
[2023-08-02] MEDS: HYDROMORPHONE 0.5 MG INJ 1 MG IV (22:46)
--- NOTE | 2023-08-02 23:37 | PC.NURSE ---
Pt arrived to unit ~2052. Pt A&OX4 on room air. Calm and cooperative. Pt refused Q1H vitals. Pt hemodynamically stable. Agreed to Q4H vitals; tele box placed on patient. Current sodium 125. Pt currently is bed resting. Call light within reach. Bed alarm on and in lowest position. See MAR and assessments for details.
[2023-08-03 00:01] VITALS: BP 95/63; PULSE 90; RESP 16; TEMP 36.4; O2SAT 100
[2023-08-03] MEDS: OXYCODONE IR 10 MG TABLET PO ×3 (03:46→21:00)
[2023-08-03 03:47] VITALS: BP 94/55; PULSE 84; RESP 16; TEMP 37.1; O2SAT 100
[2023-08-03] MEDS: HYDROMORPHONE 0.5 MG INJ 1 MG IV ×4 (04:20→19:34)
[2023-08-03] MEDS: SODIUM CHLORIDE 0.9% 1,000 ML 125 ML IV ×2 (04:58→18:17)
[2023-08-03 05:23] LABS: INR 1.2 (0.9-1.3); Prothrombin Time 13.6 SECONDS (10.1-12.7)
[2023-08-03 05:25] LABS: Add Manual Diff / Slide Review NO; Basophils Absolute Auto 0 /uL (0-100); Basophils Percent Auto 0.8 % (0-2); Eosinophils Absolute Auto 100 /uL (0-450); Eosinophils Percent Auto 2.7 % (2-4); Hemoglobin 8.4 g/dL (13.5-17.5); Lymphocytes Absolute Auto 800 /uL (1100-4500); Lymphocytes Percent Auto 16.9 % (25-40); Mean Corpuscular HGB Conc 34.8 % (30-36); Mean Corpuscular Hemoglobin 35.6 PG (26-34); Mean Corpuscular Volume 102.1 fL (80-100); Monocytes Absolute Auto 700 /uL (0-900); Monocytes Percent Auto 13.1 % (3-14); Neutrophils Absolute Auto 3300 /uL (1500-7000); Neutrophils Percent Auto 66.5 % (50-75); Platelet Count 160 X10^3/uL (150-400); Red Blood Cell Count 2.35 X10^6/uL (4.5-5.9); Red Cell Distribution Width 12.9 % (11.6-14.8)
[2023-08-03 05:45] LABS: BUN Creatinine Ratio 11.5 (6-22); Blood Urea Nitrogen 6 mg/dL (9-20); Calcium 7.9 mg/dL (8.4-10.2); Carbon Dioxide 24 mmol/L (22-32); Chloride 98 mmol/L (98-107); Estimated Glomerular Filt Rate > 60 mL/min (>60); Glucose 78 mg/dL (80-110); HEMOLYSIS < 15 (0-50); Sodium 126 mmol/L (137-145)
[2023-08-03 08:45] VITALS: BP 89/54; PULSE 88; RESP 17; TEMP 37.2; O2SAT 100
[2023-08-03] MEDS: THIAMINE 100 MG TABLET PO (08:49)
[2023-08-03] MEDS: FOLIC ACID 1 MG TABLET PO (08:50)
[2023-08-03] MEDS: allopurinoL 100 MG TABLET 300 MG PO ×2 (08:50→21:00)
[2023-08-03] MEDS: MULTIVITAMIN 1 TABLET 1 TAB PO (08:50)
[2023-08-03] MEDS: MAGNESIUM CHLORIDE 64 MG TABLET 128 MG PO (11:33)
[2023-08-03 12:25] LABS: Sodium 124 mmol/L (137-145)
[2023-08-03 13:00] VITALS: BP 92/52; PULSE 80; RESP 16; TEMP 36.6; O2SAT 98
--- NOTE | 2023-08-03 14:13 | CM.DANOTE ---
Initial DCP Assessment Note Pt is a 62 yo male, resident of [facility], admitted to [facility] 10.18 after fall at home w/ subsequent hip fracture. Patient was being considered for hip surgery which was delayed r/t sodium issues. Patient left AMA 10.20. Patient returns after having multiple falls at home and is admitted for further management of sodium irregularity and need for ortho consult. PCP: Lana Singh Payer: [facility]/ULICES spend down Met w/patient to introduce self and role. Patient lives alone in an airst[place] on [address]. Patient lives in social security disability which he qualified for due to his debilitating arthritis and gout. 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 Patient denies heavy alcohol use, says he drinks about 6 beers daily with occasional hard alcohol use. Patient gives this OPEN DEVELOPER OPERATOR contact for daughter Annalee who currently lives in [facility] [place] P [phone] CM team will plan to follow clinical course closely Plan: Unknown at this time. ANN-MARIE Emerson Discharge Planning/Care Management Discharge Assessment Start: 08/03/23 14:08 Freq: Status: Active Protocol: Document 08/03/23 14:08 NIA (Rec: 08/03/23 14:13 NIA [id number]) Discharge Planning Assessment Assigned [employer] ANN-MARIE Steinberg DPOA/Assigned Designee Name odalis Mantilla ([facility] [place]) Contact Information [phone] Advance Directives? No History Provided By Patient,Medical Record Comment Lives [place] [address] Household Members none Type of transporation used prior to Relies on Others admit Independent with ADL's Disabled Is patient alert and oriented? Yes Barriers to Discharge Yes Comment Patient lives in an airstream, have not discussed availability of caregivers- friends, family etc Discharge Plan Jail Facility Transportation Arrangement TBD Additional Comment Dependent on clinical course If patient plan is home with home health No : Has signed face to face form been completed? Whiteboard Updated in Patient Room with Yes name and ext. # of [employer]
[2023-08-03] MEDS: SODIUM CHLORIDE 0.9% 500 ML IV (15:42)
[2023-08-03 17:00] VITALS: BP 94/54; PULSE 80; RESP 16; TEMP 36.6; O2SAT 100
--- NOTE | 2023-08-03 17:42 | PM.PN.1 ---
Subjective Subjective Interval history: Ortho said non-operable so PT/OT ordered. Na improved to 126 then down to 124. Patient complaining of ongoing hip pain. Exam Vital Signs (past 8 hours): - 08/03/23 13:00 08/03/23 17:00 Temperature 97.9 F 97.9 F Pulse Rate 80 80 Respiratory Rate 16 16 Blood Pressure 92/52 L 94/54 L Pulse Oximetry 98 100 Oxygen Delivery Method Room Air Oxygen Flow Rate 0 Narrative Exam Narrative: GEN: no acute distress, disheveled HEENT: moist mucous membranes, PERRL NECK: trachea midline, no JVD CV: regular rate and rhythm, no murmurs PULM: clear bilaterally ABD: soft, nontender, nondistended, no organomegaly EXT: left hip tender to palpation NEURO: awake, alert, oriented, no focal deficits Objective Labs 08/03/23 04:25 08/03/23 12:01 Labs: Laboratory Results - last 24 hr 08/02/23 08/02/23 08/03/23 15:10 20:44 04:25 WBC 5.0 RBC 2.35 L Hgb 8.4 L Hct 24.0 L MCV 102.1 H MCH 35.6 H MCHC 34.8 RDW 12.9 Plt Count 160 Neut % (Auto) 66.5 Lymph % (Auto) 16.9 L [place] % (Auto) 13.1 Eos % (Auto) 2.7 Baso % (Auto) 0.8 Neut # (Auto) 3300 Lymph # (Auto) 800 L [place] # (Auto) 700 Eos # (Auto) 100 Baso # (Auto) 0 PT 13.6 H INR 1.2 Sodium 125 L 126 L Potassium 4.0 Chloride 98 Carbon Dioxide 24 BUN 6 L Creatinine 0.52 L Estimated GFR > 60 BUN/Creatinine Ratio 11.5 Glucose 78 L Calcium 7.9 L Magnesium 1.6 TSH 1.98 08/03/23 12:01 WBC RBC Hgb Hct MCV MCH MCHC RDW Plt Count Neut % (Auto) Lymph % (Auto) [place] % (Auto) Eos % (Auto) Baso % (Auto) Neut # (Auto) Lymph # (Auto) [place] # (Auto) Eos # (Auto) Baso # (Auto) PT INR Sodium 124 L Potassium Chloride Carbon Dioxide BUN Creatinine Estimated GFR BUN/Creatinine Ratio Glucose Calcium Magnesium TSH [facility] Medical History Foot pain Psoriatic arthritis Chronic gout, unspecified, 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 Surgical History Anesthesia History of surgery History of hip replacement Social History household members: none Smoking Status: Current every day smoker alcohol intake: current Assessment & Plan Assessment & Plan narrative: # severe hyponatremia, POA, improving -patient essentially asymptomatic -prior Bernadine <5 suggesting hypovolemic, but beer potomania likely as patient mostly just drinks beer -NS at 125cc/hr -q4h sodium checks -now up to 126, but then dipped to 124 -continue IVF # subacute periprosthetic hip fracture, POA -ortho consulted for possible surgery -continue pain control, increased oxy and dilaudid doses due to tolerance -ortho said non-operable, rec PT/OT and touch down weightbearing # chronic tophaceous gout, POA -continue allopurinol # alcohol dependence -drinks 5-6 beers almost daily -CIWA -MV, thiamine and folate po # opiate dependence, POA -will make treating pain more difficult -IV pain meds with oxy and dilaudid for now, increased dose. # psoriasis , POA -per PCP note they were attempting to get records to see if any diagnosis of RA or psoriatic arthritis -is not currently on medications for autoimmune arthritis Code status is full code. DVT prophylaxis with SCDs. Proxy is daughter Mindi Hutchinson. I have reviewed home meds and used all available resources to reconcile the home meds. Dispo: Pending PT/OT evals and sodium improvement. Likely 1-2 more days.
[2023-08-03 17:49] LABS: Sodium 125 mmol/L (137-145)
--- NOTE | 2023-08-03 18:08 | PC.NURSE ---
It was discovered that pt has a pill container with vitamins and sleeping pills at bedside when pt was attempting to take a pill. Educated pt that he cannot take his own meds and offered to send pill container to pharmacy for them to hold, pt declines and states that he will not take them. Dr Ritchie was updated, no further orders at this time.
[2023-08-03 20:00] VITALS: BP 106/68; PULSE 86; RESP 17; TEMP 36.8; O2SAT 96
--- NOTE | 2023-08-03 20:11 | PM.PN.1 ---
Subjective Subjective Interval history: He is resting comfortably in bed. He has a history of several falls since he left Against Medical Advice with his left femur fracture. He notes ongoing pain. Exam Vital Signs (past 8 hours): - 08/03/23 13:00 08/03/23 17:00 08/03/23 20:00 Temperature 97.9 F 97.9 F 98.2 F Pulse Rate 80 80 86 Respiratory Rate 16 16 17 Blood Pressure 92/52 L 94/54 L 106/68 Pulse Oximetry 98 100 96 Oxygen Delivery Method Room Air Oxygen Flow Rate 0 Narrative Exam Narrative: Some pain with range of motion of his left hip stable to fire his toe flexors and extensors has a well-healed incision Objective Labs 08/03/23 04:25 08/03/23 17:32 Labs: Laboratory Results - last 24 hr 08/02/23 08/02/23 08/03/23 15:10 20:44 04:25 WBC 5.0 RBC 2.35 L Hgb 8.4 L Hct 24.0 L MCV 102.1 H MCH 35.6 H MCHC 34.8 RDW 12.9 Plt Count 160 Neut % (Auto) 66.5 Lymph % (Auto) 16.9 L [place] % (Auto) 13.1 Eos % (Auto) 2.7 Baso % (Auto) 0.8 Neut # (Auto) 3300 Lymph # (Auto) 800 L [place] # (Auto) 700 Eos # (Auto) 100 Baso # (Auto) 0 PT 13.6 H INR 1.2 Sodium 125 L 126 L Potassium 4.0 Chloride 98 Carbon Dioxide 24 BUN 6 L Creatinine 0.52 L Estimated GFR > 60 BUN/Creatinine Ratio 11.5 Glucose 78 L Calcium 7.9 L TSH 1.98 08/03/23 08/03/23 12:01 17:32 WBC RBC Hgb Hct MCV MCH MCHC RDW Plt Count Neut % (Auto) Lymph % (Auto) [place] % (Auto) Eos % (Auto) Baso % (Auto) Neut # (Auto) Lymph # (Auto) [place] # (Auto) Eos # (Auto) Baso # (Auto) PT INR Sodium 124 L 125 L Potassium Chloride Carbon Dioxide BUN Creatinine Estimated GFR BUN/Creatinine Ratio Glucose Calcium TSH [facility] Medical History Foot pain Psoriatic arthritis Chronic gout, unspecified, 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 Surgical History Anesthesia History of surgery History of hip replacement Social History household members: none Smoking Status: Current every day smoker alcohol intake: current Assessment & Plan Assessment and plan (1) Periprosthetic fracture around internal prosthetic left hip joint: Status: Acute (2) Acute hyponatremia: Status: Acute (3) Closed hip fracture: Qualifiers: Encounter type: initial encounter Laterality: left Qualified Code(s): S72.002A - Fracture of unspecified part of neck of left femur, initial encounter for closed fracture Status: Acute (4) Closed rib fracture: Status: Acute (5) Opioid dependence: Qualifiers: Substance use status: uncomplicated Qualified Code(s): F11.20 - Opioid dependence, uncomplicated Status: Acute (6) Chronic tophaceous gout: Status: Acute (7) Psoriatic arthritis: Status: Acute Plan I discussed his situation with Dr. Luz olivia. He has some additional fractures around his left femoral prosthesis. We both concur that his best strategy is nonoperative management. He has fairly soft bone and a fairly comminuted fracture. His prosthesis does not appear to be grossly loose. Our recommendation is strict fall precautions, limited partial weight-bearing on the left lower extremity, transfer or ambulation on a limited basis with a walker and allow the fracture to heal with possible long-term reconstruction if he has additional loosening of his stem. I would recommend placement in an ECF if that is an option.
[2023-08-03] MEDS: ACETAMINOPHEN 325 MG TABLET 650 MG PO (20:59)
[2023-08-03] MEDS: CYCLOBENZAPRINE 10 MG TABLET PO (20:59)
[2023-08-03 21:37] LABS: Sodium 123 mmol/L (137-145)
--- NOTE | 2023-08-03 22:09 | PM.CN ---
History of Present Illness Consult details Date Patient Seen: 08/03/23 Time Patient Seen: 14:00 Chief complaint: here last week broken hip left AMA/fell 3x Reason for consult: left sided rib fractures Requesting provider: Johanne Ridley Narrative: Patient S/P several falls. Asked to address multiple left sided rib fractures w/o hemo/pneumothorax. Meds Home Medications and Allergies Home Medications Medication Instructions Recorded Confirmed Type naloxone 4 mg/actuation nasal spray 1 spray intranasal Q3M #2 ea 06/17/21 08/02/23 Rx colchicine (gout) 0.6 mg tablet 0.6 mg PO DAILY PRN acute gout #30 03/24/22 08/02/23 Rx tabs diclofenac sodium 1 % topical gel 4 g topical QID #100 grams 05/05/22 08/02/23 Rx (Voltaren Arthritis Pain) naproxen 500 mg tablet 500 mg PO BID PRN pain #60 tabs 11/29/22 08/02/23 Rx cyclobenzaprine 10 mg tablet 10 mg PO TID #90 tabs 05/01/23 08/02/23 Rx allopurinol 300 mg tablet 300 mg PO BID #60 tabs 06/04/23 08/02/23 Rx oxycodone-acetaminophen 10 mg-325 See Rx Instructions .Route 07/06/23 08/02/23 Rx mg tablet .COMPLEX #90 tabs Allergies Allergy/AdvReac Type Severity Reaction Status Date / Time No Known Drug Allergies Allergy Verified 08/02/23 14:42 Review of Systems Review of Systems Narrative: Hurts all over. no SOB ROS: Yes All systems reviewed with the patient and are negative except as otherwise documented Exam Vital Signs (past 8 hours): - 08/03/23 17:00 08/03/23 20:00 Temperature 97.9 F 98.2 F Pulse Rate 80 86 Respiratory Rate 16 17 Blood Pressure 94/54 L 106/68 Pulse Oximetry 100 96 Oxygen Delivery Method Room Air Oxygen Flow Rate 0 Narrative Exam Narrative: Left anetior,superior eccymosis of at least 48hr duration that is cw fall 3 days ago left sided rib fractures and clavicle fracture. Patient was admitted but left AMA. No crepitus, clear bilateral BS, minimal tenderness to palpation. Objective Labs 08/03/23 04:25 08/03/23 21:22 Labs: Laboratory Results - last 24 hr 08/03/23 08/03/23 08/03/23 04:25 12:01 17:32 WBC 5.0 RBC 2.35 L Hgb 8.4 L Hct 24.0 L MCV 102.1 H MCH 35.6 H MCHC 34.8 RDW 12.9 Plt Count 160 Neut % (Auto) 66.5 Lymph % (Auto) 16.9 L [place] % (Auto) 13.1 Eos % (Auto) 2.7 Baso % (Auto) 0.8 Neut # (Auto) 3300 Lymph # (Auto) 800 L [place] # (Auto) 700 Eos # (Auto) 100 Baso # (Auto) 0 PT 13.6 H INR 1.2 Sodium 126 L 124 L 125 L Potassium 4.0 Chloride 98 Carbon Dioxide 24 BUN 6 L Creatinine 0.52 L Estimated GFR > 60 BUN/Creatinine Ratio 11.5 Glucose 78 L Calcium 7.9 L 08/03/23 21:22 WBC RBC Hgb Hct MCV MCH MCHC RDW Plt Count Neut % (Auto) Lymph % (Auto) [place] % (Auto) Eos % (Auto) Baso % (Auto) Neut # (Auto) Lymph # (Auto) [place] # (Auto) Eos # (Auto) Baso # (Auto) PT INR Sodium 123 L Potassium Chloride Carbon Dioxide BUN Creatinine Estimated GFR BUN/Creatinine Ratio Glucose Calcium PFSH Medical History Foot pain Psoriatic arthritis Chronic gout, unspecified, 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 Main complaint is left hip pain from another fall since then when he left AMA if i understand the story correctly. Plan: no intervention for rib fractures other than pulmonary toilet. Follow up CXR in 2-4 weeks is recommended with follow up PCP to eval for delayed issues such as pleural effusion. Reasonable to fore go CXR if asymptomatic with appropriate oxygenation at that time.
[2023-08-04] MEDS: HYDROMORPHONE 0.5 MG INJ 1 MG IV ×4 (00:26→19:55)
--- NOTE | 2023-08-04 03:08 | PC.NURSE ---
mini shifter Patient requested to take a break from IV fluids. RN informed patient on importance of the fluids, Patient verbalized understanding and said we can start it back up in just a few hours, I need a break to sleep for a bit.
[2023-08-04 04:00] VITALS: BP 100/60; PULSE 80; RESP 16; TEMP 36.4; O2SAT 98
[2023-08-04 06:13] LABS: Add Manual Diff / Slide Review NO; Basophils Absolute Auto 0 /uL (0-100); Eosinophils Absolute Auto 200 /uL (0-450); Eosinophils Percent Auto 3.7 % (2-4); Hematocrit 23.4 % (41-53); Hemoglobin 8.1 g/dL (13.5-17.5); Lymphocytes Absolute Auto 900 /uL (1100-4500); Lymphocytes Percent Auto 19.8 % (25-40); Mean Corpuscular HGB Conc 34.5 % (30-36); Mean Corpuscular Hemoglobin 35.3 PG (26-34); Mean Corpuscular Volume 102.4 fL (80-100); Monocytes Absolute Auto 500 /uL (0-900); Monocytes Percent Auto 11.5 % (3-14); Neutrophils Absolute Auto 3000 /uL (1500-7000); Platelet Count 151 X10^3/uL (150-400); Red Blood Cell Count 2.29 X10^6/uL (4.5-5.9); Red Cell Distribution Width 12.9 % (11.6-14.8); White Blood Cell Count 4.6 X10^3/uL (4.5-11.0)
[2023-08-04 06:16] LABS: BUN Creatinine Ratio 7.7 (6-22); Blood Urea Nitrogen 4 mg/dL (9-20); Calcium 7.9 mg/dL (8.4-10.2); Carbon Dioxide 22 mmol/L (22-32); Chloride 99 mmol/L (98-107); Estimated Glomerular Filt Rate > 60 mL/min (>60); Glucose 78 mg/dL (80-110); HEMOLYSIS < 15 (0-50); Potassium 3.8 mmol/L (3.4-5.1); Sodium 124 mmol/L (137-145)
[2023-08-04 06:18] LABS: Magnesium 1.4 mg/dL (1.6-2.3)
[2023-08-04 08:00] VITALS: BP 98/62; PULSE 73; TEMP 36.2; O2SAT 99
--- NOTE | 2023-08-04 08:41 | P.CONS_ITS ---
History of Present Illness Consult details Chief complaint: here last week broken hip left AMA/fell 3x Narrative: Patient returns to the hospital and has been admitted after having falls at home. Laboratory abnormalities similar to during his previous admission when I separately evaluated him. Has been admitted to the medical service for management of these issues. On my discussion with him he says ?I just fell? when I inquired regarding the circumstances which led to his returned to the hospital. He endorses ongoing pain in his hip. He reports that he was reliably using his walker at home. No other new orthopedic complaints. Pain remains in his hip. Alleviated by rest and aggravated by movement Meds Home Medications and Allergies Home Medications Medication Instructions Recorded Confirmed Type naloxone 4 mg/actuation nasal spray 1 spray intranasal Q3M #2 ea 06/17/21 08/02/23 Rx colchicine (gout) 0.6 mg tablet 0.6 mg PO DAILY PRN acute gout #30 03/24/22 08/02/23 Rx tabs diclofenac sodium 1 % topical gel 4 g topical QID #100 grams 05/05/22 08/02/23 Rx (Voltaren Arthritis Pain) naproxen 500 mg tablet 500 mg PO BID PRN pain #60 tabs 11/29/22 08/02/23 Rx cyclobenzaprine 10 mg tablet 10 mg PO TID #90 tabs 05/01/23 08/02/23 Rx allopurinol 300 mg tablet 300 mg PO BID #60 tabs 06/04/23 08/02/23 Rx oxycodone-acetaminophen 10 mg-325 See Rx Instructions .Route 07/06/23 08/02/23 Rx mg tablet .COMPLEX #90 tabs Allergies Allergy/AdvReac Type Severity Reaction Status Date / Time No Known Drug Allergies Allergy Verified 08/02/23 14:42 Review of Systems Review of Systems ROS: Yes All systems reviewed with the patient and are negative except as otherwise documented Exam Vital Signs (past 8 hours): - 08/04/23 04:00 Temperature 97.5 F L Pulse Rate 80 Respiratory Rate 16 Blood Pressure 100/60 Pulse Oximetry 98 Oxygen Delivery Method Room Air Oxygen Flow Rate 0 Narrative Exam Narrative: LLE: Palpable DP pulse. Toes WWP. SILT L2-S1. Volitionally moving injured hip. ROM exam deferred due to pain Const General: cooperative Orientation: alert and awake HENPR Head: normal to inspection Ears: hearing grossly normal bilaterally Eyes General: appearance normal, both eyes and all related structures Neck Neck: normal visual inspection Resp Effort & Inspection: normal respiratory effort and able to speak in complete sentences Cardio Pulses: other (peripheral pulses present) Skin Lesions: no lesions Rashes: no rashes Neuro General: patient alert, patient awake and moves all extremities Psych Appearance: grossly normal Objective Imaging Left hip Xray: My impression: There is persistence of the periprosthetic fracture with avulsion of the lesser trochanter and fragmentation of the greater trochanter as compared to prior. The stem remains in place with no discernible subsidence as compared to his CT scan during his prior admission Labs 08/04/23 05:52 08/04/23 05:52 Labs: Laboratory Results - last 24 hr 08/03/23 08/03/23 08/03/23 12:01 17:32 21:22 WBC RBC Hgb Hct MCV MCH MCHC RDW Plt Count Neut % (Auto) Lymph % (Auto) [place] % (Auto) Eos % (Auto) Baso % (Auto) Neut # (Auto) Lymph # (Auto) [place] # (Auto) Eos # (Auto) Baso # (Auto) Sodium 124 L 125 L 123 L Potassium Chloride Carbon Dioxide BUN Creatinine Estimated GFR BUN/Creatinine Ratio Glucose Calcium Magnesium 08/04/23 05:52 WBC 4.6 RBC 2.29 L Hgb 8.1 L Hct 23.4 L MCV 102.4 H MCH 35.3 H MCHC 34.5 RDW 12.9 Plt Count 151 Neut % (Auto) 64.0 Lymph % (Auto) 19.8 L [place] % (Auto) 11.5 Eos % (Auto) 3.7 Baso % (Auto) 1.0 Neut # (Auto) 3000 Lymph # (Auto) 900 L [place] # (Auto) 500 Eos # (Auto) 200 Baso # (Auto) 0 Sodium 124 L Potassium 3.8 Chloride 99 Carbon Dioxide 22 BUN 4 L Creatinine 0.52 L Estimated GFR > 60 BUN/Creatinine Ratio 7.7 Glucose 78 L Calcium 7.9 L Magnesium 1.4 L PFSH Medical History Foot pain Psoriatic arthritis Chronic gout, unspecified, 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 I was able to obtain his original operative notes which indicate that the cables in place around his femur were placed during a primary surgery due to calcar cracks noted at that time. These healed uneventfully remotely. His prosthesis shows good persistent ingrowth distally on the CT scan obtained during his prior admission. In the interval since leaving [facility] there has been avulsion of his lesser trochanter and fragmentation with maintained positioning of his greater trochanter. If he can consolidate in place in his current position he will be able to resume his preinjury activity levels. Surgery to stabilize his trochanters would be unlikely to improve his function as his lesser trochanter would be highly likely to re-displace and his greater trochanter remains in appropriate alignment at this time. His complication profile with a large approach to his hip for fixation would carry an extremely high complication risk given his severe gout, persistent hyponatremia and recurrent falls. I recommend that he use a walker diligently at all times and take all precautions necessary to avoid future falls. He has a stable stem in place which bridges his fracture and will be able to resume his normal activities if he can maintain fall precautions and use a walker for long enough for this fracture to consolidate. This should take 8-12 weeks.
[2023-08-04] MEDS: allopurinoL 100 MG TABLET 300 MG PO (09:00)
[2023-08-04] MEDS: ACETAMINOPHEN 325 MG TABLET 650 MG PO ×2 (09:00→21:15)
[2023-08-04] MEDS: OXYCODONE IR 10 MG TABLET PO ×3 (09:01→21:16)
[2023-08-04] MEDS: MULTIVITAMIN 1 TABLET 1 TAB PO (09:01)
[2023-08-04] MEDS: FOLIC ACID 1 MG TABLET PO (09:01)
[2023-08-04] MEDS: SENNOSIDES 8.6 MG TABLET PO (09:01)
[2023-08-04] MEDS: THIAMINE 100 MG TABLET PO (09:01)
[2023-08-04] MEDS: MAGNESIUM SULFATE 4 GM/100 ML PIGGYBACK IV (09:02)
[2023-08-04 12:06] LABS: Sodium 126 mmol/L (137-145)
--- NOTE | 2023-08-04 12:22 | PT-IP ANOTE ---
PT diann received and EMR reviewed. checked on pt and pt initially agreed to PT. obtained home set up and PLOF. pt then stated that he is on disability and cannot afford PT or other recommendations. pt gets easily agitated. This PT asked pt if he want PT and said No and that aside from him not able to afford it, he just don't feel like it. Pt stated that he did his own PT after he had his hip surgery and will be able to do it again himself. This PT asked pt if he wants PT to check on him this afternoon and said yes. informed case specialist regarding pt's concern and refusal.
[2023-08-04 13:50] VITALS: BP 101/62; PULSE 104; RESP 16; TEMP 36.7; O2SAT 93
--- NOTE | 2023-08-04 14:06 | PT-IP ANOTE ---
Checked back on pt this afternoon and pt continues to refuse. Stated not today but agreed for PT to check back tomorrow.
--- NOTE | 2023-08-04 17:12 | PM.PN.1 ---
Subjective Subjective Interval history: Na now improved to 126 with IVF. Patient refused to work with PT. Will not go to SNF saying he knows he won't fall again at home using a walker. He is annoyed and says he has no money for anything like this. He promises that if he falls at home again and comes back, he will go to SNF at that point. Exam Vital Signs (past 8 hours): - 08/03/23 13:00 08/03/23 17:00 Temperature 97.9 F 97.9 F Pulse Rate 80 80 Respiratory Rate 16 16 Blood Pressure 92/52 L 94/54 L Pulse Oximetry 98 100 Oxygen Delivery Method Room Air Oxygen Flow Rate 0 Narrative Exam Narrative: GEN: no acute distress, disheveled HEENT: moist mucous membranes, PERRL NECK: trachea midline, no JVD CV: regular rate and rhythm, no murmurs PULM: clear bilaterally ABD: soft, nontender, nondistended, no organomegaly EXT: left hip tender to palpation NEURO: awake, alert, oriented, no focal deficits Objective Labs 08/04/23 05:52 08/04/23 11:50 Labs: Laboratory Results - last 24 hr 08/03/23 08/03/23 08/04/23 17:32 21:22 05:52 WBC 4.6 RBC 2.29 L Hgb 8.1 L Hct 23.4 L MCV 102.4 H MCH 35.3 H MCHC 34.5 RDW 12.9 Plt Count 151 Neut % (Auto) 64.0 Lymph % (Auto) 19.8 L [place] % (Auto) 11.5 Eos % (Auto) 3.7 Baso % (Auto) 1.0 Neut # (Auto) 3000 Lymph # (Auto) 900 L [place] # (Auto) 500 Eos # (Auto) 200 Baso # (Auto) 0 Sodium 125 L 123 L 124 L Potassium 3.8 Chloride 99 Carbon Dioxide 22 BUN 4 L Creatinine 0.52 L Estimated GFR > 60 BUN/Creatinine Ratio 7.7 Glucose 78 L Calcium 7.9 L Magnesium 1.4 L 08/04/23 11:50 WBC RBC Hgb Hct MCV MCH MCHC RDW Plt Count Neut % (Auto) Lymph % (Auto) [place] % (Auto) Eos % (Auto) Baso % (Auto) Neut # (Auto) Lymph # (Auto) [place] # (Auto) Eos # (Auto) Baso # (Auto) Sodium 126 L Potassium Chloride Carbon Dioxide BUN Creatinine Estimated GFR BUN/Creatinine Ratio Glucose Calcium Magnesium PFSH Medical History Foot pain Psoriatic arthritis Chronic gout, unspecified, 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 Surgical History Anesthesia History of surgery History of hip replacement Social History household members: none Smoking Status: Current every day smoker alcohol intake: current Assessment & Plan Assessment & Plan narrative: # severe hyponatremia, POA, improving -patient essentially asymptomatic -prior Bernadine <5 suggesting hypovolemic, but beer potomania likely as patient mostly just drinks beer -NS at 125cc/hr -q4h sodium checks -now up to 126 -continue IVF # subacute periprosthetic hip fracture, POA -ortho consulted for possible surgery -continue pain control, increased oxy and dilaudid doses due to tolerance -ortho said non-operable, rec PT/OT and touch down weightbearing -pt refusing SNF # chronic tophaceous gout, POA -continue allopurinol # alcohol dependence -drinks 5-6 beers almost daily -CIWA -MV, thiamine and folate po # opiate dependence, POA -will make treating pain more difficult -IV pain meds with oxy and dilaudid for now, increased dose. # psoriasis , POA -per PCP note they were attempting to get records to see if any diagnosis of RA or psoriatic arthritis -is not currently on medications for autoimmune arthritis Code status is full code. DVT prophylaxis with SCDs. Proxy is daughter Mindi Hutchinson. I have reviewed home meds and used all available resources to reconcile the home meds. Dispo: Home with HH on 08/05 if Na continues to improve, patient refusing SNF.
[2023-08-04 18:52] LABS: Sodium 125 mmol/L (137-145)
[2023-08-04 19:43] VITALS: BP 111/72; PULSE 88; RESP 18; TEMP 36; O2SAT 95
[2023-08-04] MEDS: CYCLOBENZAPRINE 10 MG TABLET PO (21:15)
[2023-08-05] MEDS: HYDROMORPHONE 0.5 MG INJ 1 MG IV ×2 (03:04→08:00)
[2023-08-05 03:54] VITALS: BP 102/66; PULSE 81; RESP 18; TEMP 35.9; O2SAT 95
[2023-08-05] MEDS: SODIUM CHLORIDE 0.9% 1,000 ML 125 ML IV (03:59)
[2023-08-05 04:39] LABS: Add Manual Diff / Slide Review NO; Basophils Absolute Auto 100 /uL (0-100); Basophils Percent Auto 1.1 % (0-2); Eosinophils Absolute Auto 200 /uL (0-450); Eosinophils Percent Auto 3.3 % (2-4); Hematocrit 25.8 % (41-53); Hemoglobin 8.9 g/dL (13.5-17.5); Lymphocytes Absolute Auto 800 /uL (1100-4500); Lymphocytes Percent Auto 17.5 % (25-40); Mean Corpuscular HGB Conc 34.6 % (30-36); Mean Corpuscular Hemoglobin 35.6 PG (26-34); Mean Corpuscular Volume 102.8 fL (80-100); Monocytes Absolute Auto 500 /uL (0-900); Monocytes Percent Auto 9.8 % (3-14); Neutrophils Absolute Auto 3200 /uL (1500-7000); Neutrophils Percent Auto 68.3 % (50-75); Platelet Count 157 X10^3/uL (150-400); Red Blood Cell Count 2.51 X10^6/uL (4.5-5.9); Red Cell Distribution Width 13.2 % (11.6-14.8); White Blood Cell Count 4.7 X10^3/uL (4.5-11.0)
[2023-08-05 04:47] LABS: BUN Creatinine Ratio 4.8 (6-22); Blood Urea Nitrogen 3 mg/dL (9-20); Calcium 8.2 mg/dL (8.4-10.2); Carbon Dioxide 24 mmol/L (22-32); Chloride 97 mmol/L (98-107); Estimated Glomerular Filt Rate > 60 mL/min (>60); Glucose 85 mg/dL (80-110); HEMOLYSIS < 15 (0-50); Magnesium 1.9 mg/dL (1.6-2.3); Potassium 3.3 mmol/L (3.4-5.1); Sodium 126 mmol/L (137-145)
[2023-08-05 08:38] VITALS: BP 100/65; PULSE 78; RESP 18; TEMP 36.8; O2SAT 98
--- NOTE | 2023-08-05 10:05 | P.CONS_ITS ---
History of Present Illness Consult details Chief complaint: here last week broken hip left AMA/fell 3x Narrative: Theaux says he is well. He says he is going to go home today. He says PT has been working with him. He is anticipating PT coming around this morning to evaluate him so he can leave. Meds Home Medications and Allergies Home Medications Medication Instructions Recorded Confirmed Type naloxone 4 mg/actuation nasal spray 1 spray intranasal Q3M #2 ea 06/17/21 08/02/23 Rx colchicine (gout) 0.6 mg tablet 0.6 mg PO DAILY PRN acute gout #30 03/24/22 08/02/23 Rx tabs diclofenac sodium 1 % topical gel 4 g topical QID #100 grams 05/05/22 08/02/23 Rx (Voltaren Arthritis Pain) naproxen 500 mg tablet 500 mg PO BID PRN pain #60 tabs 11/29/22 08/02/23 Rx cyclobenzaprine 10 mg tablet 10 mg PO TID #90 tabs 05/01/23 08/02/23 Rx allopurinol 300 mg tablet 300 mg PO BID #60 tabs 06/04/23 08/02/23 Rx oxycodone-acetaminophen 10 mg-325 See Rx Instructions .Route 07/06/23 08/02/23 Rx mg tablet .COMPLEX #90 tabs Allergies Allergy/AdvReac Type Severity Reaction Status Date / Time No Known Drug Allergies Allergy Verified 08/02/23 14:42 Exam Vital Signs (past 8 hours): - 08/05/23 03:54 08/05/23 08:38 Temperature 96.7 F L 98.3 F Pulse Rate 81 78 Respiratory Rate 18 18 Blood Pressure 102/66 100/65 Pulse Oximetry 95 98 Oxygen Flow Rate 0 Oxygen Delivery Method Room Air Oxygen Flow Rate 0 Narrative Exam Narrative: Pain to palpation over the left hip. Limited ROM due to pain. Able to dorsal and plantar flex at ankle against resistance. Neurologically grossly intact of the lower extremity. Objective Labs 08/05/23 04:03 08/05/23 04:03 Labs: Laboratory Results - last 24 hr 08/04/23 08/04/23 08/05/23 11:50 18:20 04:03 WBC 4.7 RBC 2.51 L Hgb 8.9 L Hct 25.8 L MCV 102.8 H MCH 35.6 H MCHC 34.6 RDW 13.2 Plt Count 157 Neut % (Auto) 68.3 Lymph % (Auto) 17.[address] [place] % (Auto) 9.8 Eos % (Auto) 3.3 Baso % (Auto) 1.1 Neut # (Auto) 3200 Lymph # (Auto) [address] 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 Theaux is aware his condition is non-surgical and will require PT to assist in healing. Total time for resolution 8-12 weeks.
--- NOTE | 2023-08-05 10:14 | PT-IP ANOTE ---
PT chart reviewed and spoke with nursing regarding pt's status. PT introduced self to pt and explained the role of PT and purpose of PT evaluation. The pt then refused to participate in PT evaluation, stating I will figure it out once I get home. PT again reiterated the purpose/indication for PT for safety, fall risk education and therapeutic exercise prescription. The pt was open to receiving supine and sitting LE exercise handouts but refused further instruction on therapeutic exercises. PT emphasized TTWB precautions on LLE for ambulation and stairs, and attempted to discuss with the pt different strategies for how to navigate 2 ECHO at home, but pt again states he will figure it out on his own. Prior to leaving room, all needs were met and call light is within reach. Per rounds, the plan is for pt to discharge today.
[2023-08-05] MEDS: allopurinoL 100 MG TABLET 300 MG PO (10:17)
[2023-08-05] MEDS: THIAMINE 100 MG TABLET PO (10:18)
[2023-08-05] MEDS: MULTIVITAMIN 1 TABLET 1 TAB PO (10:18)
[2023-08-05] MEDS: FOLIC ACID 1 MG TABLET PO (10:18)
[2023-08-05] MEDS: POTASSIUM CHLORIDE 20 MEQ TAB 40 MEQ PO (10:21)
--- NOTE | 2023-08-05 10:39 | P.DS_ITS ---
History of Present Illness History of Present Illness Chief complaint: here last week broken hip left AMA/fell 3x Narrative: Mr. Hutchinson is a 62yo M with PMH of chronic tophaceous gout, psoriasis, and opiate dependence who presents to the hospital for the 2nd time with hip pain after a fall. He had hip replacement over a decade ago. He fell 10 days ago when he lost his balance and fell on his left hip. He was able to walk but with difficulty so came to the ED and found to have L periprosthetic hip fracture. Also had sodium of 115 so admitted for hyptertonic saline and possible surgery. Na improved to 119. Surgery was delayed to give time for sodium to improve, and patient became upset from this so left AMA. He used a crutch at home, but continued having pain and has had several falls. He represented to the ED today due to continued L hip pain and falls. Na found to now be 122. He is asymptomatic. He says he doesn't drink much water and mostly beer, up to 5-6 almost daily. He also smokes marijuana but no other drug use. He denies CP, headache, seizure, vertigo, SOB, abd pain or diarrhea. Discharge Providers Provider Date of admission: 08/02/23 18:18 Discharge Date: 08/05/23 Primary care physician: Lana Singh MD Consults: 08/02/23 18:17 Consult to General Surgery Stat Comment: Consulting Provider: Aiyana Knutson Reason for consultation: rib fractures Has provider been notified: Yes Consult to Orthopedic Surgery Stat Comment: Consulting Provider: Brigida Strauss Reason for consultation: hip fracture Has provider been notified: Yes 08/02/23 18:26 Consult to General Surgery Routine Comment: Consulting Provider: Aiyana Knutson Reason for consultation: rib fractures Consult to Orthopedic Surgery Routine Comment: Consulting Provider: Brigida Strauss Reason for consultation: hip fracture 08/02/23 19:12 Consult to Dietitian, Adult Routine Comment: Reason For Exam: poor diet, drinks mostly beer 08/03/23 15:35 Consult to Occupational Therapy Evaluate & Treat Comment: Physician Instructions: Evaluate and treat Consult to Physical Therapy Evaluate & Treat Comment: Physician Instructions: Evaluate and Treat Discharge provider: Amari Ritchie DO Summary Hospital Course Discharge Diagnosis: # severe hyponatremia, POA, improving -patient essentially asymptomatic -prior Bernadine <5 suggesting hypovolemic, but beer potomania likely as patient mostly just drinks beer -NS at 125cc/hr -q4h sodium checks -now up to 126 -placed on salt tabs 1g BID on discharge # subacute periprosthetic hip fracture, POA -ortho consulted for possible surgery -continue pain control, increased oxy and dilaudid doses due to tolerance -ortho said non-operable, rec PT/OT and touch down weightbearing -pt refusing SNF, refusing to work with PT -will go home with walker # chronic tophaceous gout, POA -continue allopurinol # alcohol dependence -drinks 5-6 beers almost daily -CIWA -MV, thiamine and folate po # opiate dependence, POA -will make treating pain more difficult -IV pain meds with oxy and dilaudid for now, increased dose. # psoriasis , POA -per PCP note they were attempting to get records to see if any diagnosis of RA or psoriatic arthritis -is not currently on medications for autoimmune arthritis Hospital Course: Admitted for several falls at home and periprosthetic hip fracture. Na found to be 122 up from 115 a week prior when he left AMA. Na improved to 126 with IVF and then put on salt tabs. Refused to work with PT and refused SNF. Discharged home with walker and salt tabs. Agreed to go to SNF the next time he is admitted with falls. Exam Vital Signs (past 8 hours): - 08/05/23 03:54 08/05/23 08:38 Temperature 96.7 F L 98.3 F Pulse Rate 81 78 Respiratory Rate 18 18 Blood Pressure 102/66 100/65 Pulse Oximetry 95 98 Oxygen Flow Rate 0 Oxygen Delivery Method Room Air Oxygen Flow Rate 0 Narrative Exam Narrative: GEN: no acute distress, disheveled HEENT: moist mucous membranes, PERRL NECK: trachea midline, no JVD CV: regular rate and rhythm, no murmurs PULM: clear bilaterally ABD: soft, nontender, nondistended, no organomegaly EXT: left hip tender to palpation NEURO: awake, alert, oriented, no focal deficits Objective Labs 08/05/23 04:03 08/05/23 04:03 Labs: Laboratory Results - last 24 hr 08/04/23 08/04/23 08/05/23 11:50 18:20 04:03 WBC 4.7 RBC 2.51 L Hgb 8.9 L Hct 25.8 L MCV 102.8 H MCH 35.6 H MCHC 34.6 RDW 13.2 Plt Count 157 Neut % (Auto) 68.3 Lymph % (Auto) 17.5 L [place] % (Auto) 9.8 Eos % (Auto) 3.3 Baso % (Auto) 1.1 Neut # (Auto) 3200 Lymph # (Auto) 800 L [place] # (Auto) 500 Eos # (Auto) 200 Baso # (Auto) 100 Sodium 126 L 125 L 126 L Potassium 3.3 L Chloride 97 L Carbon Dioxide 24 BUN 3 L Creatinine 0.63 L Estimated GFR > 60 BUN/Creatinine Ratio 4.8 L Glucose 85 Calcium 8.2 L Magnesium 1.9 PFSH Medical History Foot pain Psoriatic arthritis Chronic gout, unspecified, 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 Your sodium was very low which improved with IV saline. You will now need to take salt tablets at home to keep your sodium up. We recommended SNF, but you wouldn't go. So next time you fall you will need to go then. Discharge orders & Medications Prescriptions: New sodium chloride 1,000 mg tablet,soluble 1,000 mg PO BID Qty: 60 0RF Continued cyclobenzaprine 10 mg tablet 10 mg PO TID Qty: 90 0RF Rx Instructions: PRN oxycodone-acetaminophen 10-325 mg tablet See Rx Instructions .ROUTE .COMPLEX Qty: 90 0RF Rx Instructions: Take one tablet PO TID PRN; naloxone 4 mg/actuation spray,non-aerosol 1 spray intranasal Q3M Qty: 2 1RF Patient Comments: States he has it in possession but has never needed to use it. Rx Instructions: spray 1 dose into ONE nostril; alternate nostrils w each dose until help arrives diclofenac sodium [Voltaren Arthritis Pain] 1 % gel 4 g topical QID Qty: 100 2RF Rx Instructions: apply 4 g up to four times daily to left knee colchicine (gout) 0.6 mg tablet 0.6 mg PO DAILY PRN (Reason: acute gout) Qty: 30 1RF Patient Comments: States he doesn't take it everyday Rx Instructions: Only for acute treatment, not prophylaxis. Uses lowest effective dose short term naproxen 500 mg tablet 500 mg PO BID PRN (Reason: pain) Qty: 60 1RF Rx Instructions: Take with food allopurinol 300 mg tablet 300 mg PO BID Qty: 60 11RF Follow up/Referrals: Lana Singh MD [Primary Care Provider] - 2 Weeks Visit Report/Discharge Packet Instructions: DI for Hyponatremia Stand Alone Forms: Patient Portal/API, Stroke Signs & Symptoms Discharge Data Primary Care Provider: Lana Singh
--- NOTE | 2023-08-05 13:17 | PC.NURSE ---
Discharge Note Patient A&O, VSS, RA, no complaints of pain/discomfort. Discharge packet reviewed w/ patient. All questions/concerns addressed. PIV discontinued. Patient able to dress self and pack all belongings. Patient taken down via wheelchair to POV.
--- NOTE | 2023-08-05 13:55 | CM.DPNOTE ---
DC Note Patient discharged home today; attempted to meet with patient to review discharge plan and any discharges needs and he had left already. Plan: Discharge home w/friend, outpatient follow up recommended. NIA
== END 2023-08-05 12:30 | disposition home or self-care (01) | DRG 641 ==
LOC: ED 15:18 → AC 18:18 → ICU 20:52 → AC 08-03 17:09
PROVIDERS: Admitting Provider Student in an Organized Health Care Education/Training Program; Emergency Provider Emergency Medicine; PCP Family Medicine; Referring Provider Emergency Medicine; Visit Provider Student in an Organized Health Care Education/Training Program
DX: E87.1 Hypo-osmolality and hyponatremia (principal); S22.42XA Multiple fractures of ribs, left side, initial encounter for closed fracture; M97.01XA Periprosthetic fracture around internal prosthetic right hip joint, initial encounter; F11.20 Opioid dependence, uncomplicated; M1A.9XX1 Chronic gout, unspecified, with tophus (tophi); F10.20 Alcohol dependence, uncomplicated; S42.032A Displaced fracture of lateral end of left clavicle, initial encounter for closed fracture; W18.30XA Fall on same level, unspecified, initial encounter; Z91.81 History of falling
CPT/HCPCS: 36415; 70450; 71260; 72125; 73502; 80048; 80053; 83735; 84295; 84443; 85025; 85610; 96374; 99232; 99284; 99285; J1170; J3475; Q9967